=== PATIENT | female | born 1975 | race Caucasian/White ===

== ENCOUNTER 2017-06-05 08:46 | Outpatient (CLI) | payer OTHER | END 2017-06-05 08:47 | disposition critical access hospital (66) | LOC: EMS 08:46 | PROVIDERS: ATTEND Surgery | DX: R55 Syncope and collapse (principal) | CPT/HCPCS: A0425; A0427 ==

== ENCOUNTER 2017-06-05 09:01 | Emergency (ER) | payer OTHER ==
[2017-06-05] MEDS ORDERED: SODIUM CHLORIDE 0.9% 1,000 ML IV ONE ×2 (09:09→11:10)
--- NOTE | 2017-06-05 09:14 | ED Physician Documentation ---
History of Present Illness - Stated complaint Stated Complaint: DIZZY - Additonal information Additional information: hx from pt and EMS41 female denies preg sick for approx 5 days weak faitgue sore throat hoarse voice cough no NVD was seen in [place] ED, rapid strep neg, dx probable flu, out of window for tamiflu, dc has continued to be ill this AM while having a BM but not straining she felt faint, called her who came and lifted her to lay falt without injury she then had syncope - describes waxing and waning consciousness lasting a few sec each but over about 5 min was breathing, did not change colors no seizure activity EMS arrived and found pt to be tachy and orthostatic pt denies LONG, denies CP, denies palp, denies abd pain, denies NVD states not preg states has been drinking fluids Review of Systems Constitutional: reports: Fatigue. denies: Fever, Chills Throat: reports: Sore throat (already had a neg strep swab per pt) Cardiac: denies: Chest pain / pressure, Palpitations Respiratory: reports: Cough. denies: Dyspnea GI: denies: Abdominal Pain, Nausea, Vomiting, Diarrhea : denies: Now EGA (denies) Neurologic: reports: Generalized weakness, Syncope. 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 HEENT: None Psych: None Musculoskeletal: None Derm: None - Past Surgical History Past Surgical History: No - Present Medications Home Medications: Ambulatory Orders Medication Instructions Recorded Confirmed Benzonatate [Tessalon] 100 mg PO TID PRN #20 capsule 06/05/17 guaiFENesin/DEXTROMETHORPHAN 10 ml PO Q6H PRN #120 ml 06/05/17 [Robitussin Dm] - Allergies Allergies/Adverse Reactions: Allergies Allergy/AdvReac Type Severity Reaction Status Date / Time No Known Drug Allergies Allergy Verified 04/19/14 00:07 - Social History Does the pt smoke?: No Smoking Status: Never smoker Does the pt drink ETOH?: Yes Does the pt have substance abuse?: No - Immunizations Immunizations are current?: Yes - POLST Patient has POLST: No PD ED PE NORMAL - Vitals Vital signs reviewed: Yes (appears healthy and well kept but looks tired and weak) - General General: Alert and oriented X 3 - HEENT HEENT: PERRL, Moist mucous membranes, Pharynx benign - Neck Neck: Supple, no meningeal sign - Cardiac Cardiac: RRR (little tachy no murmur) - Respiratory Respiratory: No respiratory distress, Clear bilaterally - Abdomen Abdomen: Soft, Non tender - Derm Derm: Normal color - Extremities Extremities: No deformity - Neuro Neuro: Alert and oriented X 3 Eye Opening: Spontaneous Motor: Obeys Commands Verbal: Oriented GCS Score: 15 Results - Vitals Vitals: Vital Signs - 24 hr 06/05/17 06/05/17 06/05/17 09:03 11:11 13:27 Temperature 36.2 C L 37.0 C 36.9 C Heart Rate 92 85 76 Respiratory 16 18 15 Rate Blood Pressure 120/82 H 116/73 116/76 O2 Saturation 100 100 100 06/05/17 14:39 Temperature 37.2 C Heart Rate 76 Respiratory 18 Rate Blood Pressure 112/79 O2 Saturation 99 Oxygen O2 Source Room air - EKG (time done) 0815 Rate: Rate (enter#) Rhythm: NSR [place]: Normal Intervals: Normal [place]. No: Prolonged QT, Wide QRS QRS: Normal Ischemia: Normal ST segments Other comments: Other comments (no delta wave) - Labs Labs: Laboratory Tests 06/05/17 06/05/17 06/05/17 09:20 09:37 09:37 WBC 3.5 L RBC 4.13 L Hgb 12.4 Hct 36.4 L MCV 88.2 MCH 30.1 MCHC 34.1 RDW 12.9 Plt Count 109 L MPV 9.6 Neut # 2.4 Lymph # 0.8 L [place] # 0.3 Eos # 0.0 Baso # 0.0 Absolute Nucleated RBC 0.00 Nucleated RBC % 0.0 Sodium Potassium Chloride Carbon Dioxide Anion Gap BUN Creatinine Estimated GFR (MDRD) Glucose Lactic Acid Calcium Serum HCG, Qual NEGATIVE Urine Color Urine Clarity Urine pH Ur Specific [place] Urine Protein Urine Glucose (UA) Urine Ketones Urine Occult Blood Urine Nitrite Urine Bilirubin Urine Urobilinogen Ur Leukocyte Esterase Urine RBC Urine WBC Ur Squamous Epith Cells Urine Bacteria Ur Microscopic Review Urine Culture Comments Influenza A (Rapid) Negative Influenza B (Rapid) POSITIVE H Influenza Types A,B Ag + H 06/05/17 06/05/17 06/05/17 09:37 09:37 09:58 WBC RBC Hgb Hct MCV MCH MCHC RDW Plt Count MPV Neut # Lymph # [place] # Eos # Baso # Absolute Nucleated RBC Nucleated RBC % Sodium 134 L Potassium 3.4 L Chloride 106 Carbon Dioxide 22 Anion Gap 6.0 BUN 8 Creatinine 1.0 Estimated GFR (MDRD) 62 L Glucose 123 H Lactic Acid 1.1 Calcium 7.3 L Serum HCG, Qual Urine Color YELLOW Urine Clarity HAZY Urine pH 6.0 Ur Specific [place] <=1.005 Urine Protein NEGATIVE Urine Glucose (UA) NEGATIVE Urine Ketones NEGATIVE Urine Occult Blood NEGATIVE Urine Nitrite NEGATIVE Urine Bilirubin NEGATIVE Urine Urobilinogen 0.2 (NORMAL) Ur Leukocyte Esterase TRACE H Urine RBC 0-5 Urine WBC 0-3 Ur Squamous Epith Cells MANY Squamous H Urine Bacteria Many H Ur Microscopic Review INDICATED Urine Culture Comments NOT INDICATED Influenza A (Rapid) Influenza B (Rapid) Influenza Types A,B Ag - Rads (name of study) CXR Radiology: See rad report (NACPD no pna no cardiomegaly) PD MEDICAL DECISION MAKING - ED course ED course: influenza B with dehydration and syncope associated with orthostatic VS given 2 L of fluid outside window for tamiflu otherwise helathy, not , labs OK except for mild asymptomatic hypocalcemia feel can dc with supportive family pt gradually felt better after fluids etc no further syncope, NSR on tele, able to ambulate Departure - Departure Disposition: 01 Home, Self Care Clinical Impression: Influenza B, Dehydration Syncope Qualifiers: Syncope type: unspecified Qualified Code(s): R55 - Syncope and collapse Condition: Good Instructions: ED Dehydration, ED Flu, ED Fainting Unkn Cause Follow-Up: Virgie Dangelo PA-C [Primary Care Provider] - Prescriptions: Benzonatate [Tessalon] 100 mg PO TID PRN #20 capsule PRN Reason: to ease cough guaiFENesin/DEXTROMETHORPHAN [Robitussin Dm] 10 ml PO Q6H PRN #120 ml PRN Reason: Cough Comments: You do not have pneumonia But you do have influenza Unfortunately you have been sick for more than 2 days already so the tamiflu medication will not help at this point I think you passed out because you were dehydrated after being ill for so many days and your blood pressure was low. Your labs are fine except for a slightly low calcium level which would not cause those symptoms. The chest ray does not show an enlarged heart or a lung infection. The EKG and heart monitor showed you are in a regular rhythm without signs of heart inflammation So I actually think it is safe for you to go home after getting IV fluids in the ER You need to rest and take it easy and drink plenty of fluids I prescribed medications to ease your symptoms while you recover It may take up to 2 weeks before you are feeling better One of the dangerous complications of the flu is a secondary infection such as pneumonia - if you suddenly get worse, please come back to the ER to be rechecked Forms: Activity restrictions Discharge Date/Time: 06/05/17 15:01
[2017-06-05 09:51] LABS: BASOPHILS % (AUTO) 0.4 %; EOSINOPHILS % (AUTO) 0.4 %; HGB - HEMOGLOBIN 12.4 g/dL (12.0-16.0); LYMPHOCYTES # (AUTO) 0.8 10^3/uL (1.5-3.5); LYMPHOCYTES % (AUTO) 21.7 %; MEAN CORPUSCULAR HEMOGLOBIN 30.1 pg (27.0-31.0); MEAN CORPUSCULAR HGB CONC 34.1 g/dL (32.0-36.0); MEAN CORPUSCULAR VOLUME 88.2 fL (81.0-99.0); MEAN PLATELET VOLUME 9.6 fL (7.9-10.8); MONOCYTES # (AUTO) 0.3 10^3/uL (0.0-1.0); MONOCYTES % (AUTO) 9.7 %; NEUTROPHILS # (AUTO) 2.4 10^3/uL (1.5-6.6); NEUTROPHILS % (AUTO) 67.8 %; PLT - PLATELET COUNT 109 10^3/uL (130-450); RED BLOOD COUNT 4.13 10^6/uL (4.20-5.40); RED CELL DISTRIBUTION WIDTH 12.9 % (12.0-15.0); WHITE BLOOD COUNT 3.5 x10^3/uL (4.8-10.8)
[2017-06-05 09:54] LABS: CALCIUM 7.3 mg/dL (8.5-10.3)
[2017-06-05 10:10] LABS: BILIRUBIN,URINE NEGATIVE (NEGATIVE); GLUCOSE, URINE (UA) NEGATIVE (NEGATIVE); KETONES,URINE (UA) NEGATIVE (NEGATIVE); LEUKOCYTE ESTERASE, URINE TRACE (NEGATIVE); NITRITE,URINE NEGATIVE (NEGATIVE); OCCULT BLOOD,URINE NEGATIVE (NEGATIVE); PROTEIN,URINE NEGATIVE (NEGATIVE); UROBILINOGEN,URINE 0.2 (NORMAL) E.U./dL (NORMAL)
--- NOTE | 2017-06-05 10:12 | XRAY Report ---
EXAM: CHEST RADIOGRAPHY EXAM DATE: 06/05/2017 10:00 AM. CLINICAL HISTORY: Cough weakness syncope. COMPARISON: None. TECHNIQUE: 2 views. FINDINGS: Lungs/Pleura: No focal opacities evident. No pleural effusion. No pneumothorax. Normal volumes. Mediastinum: Heart and mediastinal contours are unremarkable. Other: None. IMPRESSION: Normal 2-view chest radiography. [facility] Referring Provider Line: [phone] SITE ID: [id number]
[2017-06-05 10:17] LABS: CLARITY,URINE HAZY (CLEAR)
[2017-06-05 10:19] LABS: HCG,QUALITATIVE BLOOD NEGATIVE
[2017-06-05 10:41] LABS: BACTERIA,URINE Many /HPF (None Seen); RBC,URINE 0-5 /HPF (0-5); SQUAMOUS EPITHELIAL CELL,UR MANY Squamous (<= Few)
[2017-06-05 14:39] VITALS: BP 112/79
== END 2017-06-05 15:01 | disposition home or self-care (01) ==
LOC: EDUNIT# → EDBD → ED 09:01
DX: J10.1 Influenza due to other identified influenza virus with other respiratory manifestations (principal); E86.0 Dehydration
CPT/HCPCS: 36415; 71046; 80048; 81001; 81003; 83605; 84703; 85025; 87040; 87086; 87275; 87276; 93005; 96360; 96361; 99284

== ENCOUNTER 2017-06-07 17:44 | Emergency (ER) | payer OTHER ==
--- NOTE | 2017-06-07 19:56 | XRAY Preliminary Report ---
Exam: XR CHEST 2 VIEW X-RAY IMPRESSION: Normal 2-view chest radiography. [facility] SITE ID: [id number]
--- NOTE | 2017-06-07 19:56 | XRAY Report ---
EXAM: CHEST RADIOGRAPHY EXAM DATE: 06/07/2017 07:43 PM. CLINICAL HISTORY: Chest congestion. COMPARISON: 06/05/2017 chest x-ray. TECHNIQUE: 2 views. FINDINGS: Lungs/Pleura: No focal opacities evident. No pleural effusion. No pneumothorax. Normal volumes. Mediastinum: Heart and mediastinal contours are unremarkable. Other: None. IMPRESSION: Normal 2-view chest radiography. [facility] Referring Provider Line: [phone] SITE ID: [id number]
--- NOTE | 2017-06-07 20:45 | ED Physician Documentation ---
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 : None HEENT: None Psych: None Musculoskeletal: None Derm: None - Past Surgical History Past Surgical History: No - Present Medications Home Medications: Ambulatory Orders Medication Instructions Recorded Confirmed Benzonatate [Tessalon] 100 mg PO TID PRN #20 capsule 06/05/17 guaiFENesin/DEXTROMETHORPHAN 10 ml PO Q6H PRN #120 ml 06/05/17 [Robitussin Dm] - Allergies Allergies/Adverse Reactions: Allergies Allergy/AdvReac Type Severity Reaction Status Date / Time No Known Drug Allergies Allergy Verified 04/19/14 00:07 - Social History Does the pt smoke?: No Smoking Status: Never smoker Does the pt drink ETOH?: Yes Does the pt have substance abuse?: No - Immunizations Immunizations are current?: Yes - POLST Patient has POLST: No Results - Vitals Vitals: Vital Signs - 24 hr 06/07/17 18:13 Temperature 37.4 C Heart Rate 91 Respiratory 18 Rate Blood Pressure 124/77 O2 Saturation 98 Oxygen O2 Source Room air
[2017-06-07 20:46] VITALS: BP 112/76
--- NOTE | 2017-06-07 20:47 | ED Physician Documentation ---
PD HPI URI - Stated complaint Stated Complaint: SOA/FLU SYMPTOMS - Chief complaint Chief Complaint: Resp - History obtained from History obtained from: Patient - History of Present Illness Timing - onset: How many days ago (5-6) Timing details: Gradual onset Associated symptoms: Chills, Sweats, Dry cough. No: Fever Worsened by: Other (coughing) Similar symptoms before: Diagnosis Recently seen: Emergency Dept - Additional information Additional information: T+R from ED (testing included negative rapid strep) and then [facility] ED (tests included positive for influenza B) for same symptoms, returns c/o ongoing cough , body aches. she has had episodic lightheadedness with standing, although this has improved (less frequent) after IV fluids given previous visit (06/05). her chief complaint tonight is chest congestion Review of Systems Constitutional: reports: Chills, Sweats. denies: Fever Throat: denies: Sore throat Cardiac: reports: Reviewed and negative Respiratory: reports: Cough. 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 HEENT: None Psych: None Musculoskeletal: None Derm: None - Past Surgical History Past Surgical History: No - Present Medications Home Medications: Ambulatory Orders Medication Instructions Recorded Confirmed Benzonatate [Tessalon] 100 mg PO TID PRN #20 capsule 06/05/17 guaiFENesin/DEXTROMETHORPHAN 10 ml PO Q6H PRN #120 ml 06/05/17 [Robitussin Dm] - Allergies Allergies/Adverse Reactions: Allergies Allergy/AdvReac Type Severity Reaction Status Date / Time No Known Drug Allergies Allergy Verified 04/19/14 00:07 - Social History Does the pt smoke?: No Smoking Status: Never smoker Does the pt drink ETOH?: Yes Does the pt have substance abuse?: No - Immunizations Immunizations are current?: Yes - POLST Patient has POLST: No PD ED PE NORMAL - Vitals Vital signs reviewed: Yes - General General: Alert and oriented X 3, No acute distress, Well developed/nourished - HEENT HEENT: Moist mucous membranes - Neck Neck: Supple, no meningeal sign - Cardiac Cardiac: RRR, No murmur, No gallop, No rub - Respiratory Respiratory: No respiratory distress, Clear bilaterally - Abdomen Abdomen: Soft, Non tender Results - Vitals Vitals: Oxygen O2 Source Room air - Rads (name of study) chest xray Radiology: Prelim report reviewed, See rad report PD MEDICAL DECISION MAKING - ED course Complexity details: reviewed results, re-evaluated patient, considered differential, d/w patient Departure - Departure Disposition: 01 Home, Self Care Clinical Impression: Influenza B Condition: Good Instructions: ED Flu Discharge Date/Time: 06/07/17 21:06
--- NOTE | 2017-06-07 21:59 | ED Physician Documentation ---
ED Addendum - Addendum Addendum: 06/07/17 21:59 unscheduled return visit - chart accessed for follow up and educational purposes
== END 2017-06-07 21:06 | disposition home or self-care (01) ==
LOC: ED 17:44
DX: J10.1 Influenza due to other identified influenza virus with other respiratory manifestations (principal)
CPT/HCPCS: 71046; 99282; 99283

== ENCOUNTER 2017-06-18 09:46 | Emergency (ER) | payer OTHER ==
--- NOTE | 2017-06-18 09:57 | ED Physician Documentation ---
History of Present Illness - Stated complaint Stated Complaint: DIARRHEA - Chief complaint Chief Complaint: Abd Pain - History obtained from History obtained from: Patient - History of Present Illness Timing: How many weeks ago (several) Pain level max: 0 Pain level now: 0 Improved by: nothing Worsened by: nothing - Additonal information Additional information: States tested positive for Flu B 2 weeks ago. Was given a z pack recently and finished yesterday. States no blood in stool. States feeling weak. Mild nausea. no abd pain. Numerous times per day diarrhea. No fevers. Did not take tamiflu. Review of Systems Ten Systems: 10 systems reviewed and negative Constitutional: denies: Fever, Chills Ears: denies: Ear pain Nose: denies: Rhinorrhea / runny nose, Congestion Throat: denies: Sore throat Cardiac: denies: Chest pain / pressure Respiratory: denies: Dyspnea, Cough GI: reports: Diarrhea. 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 : None HEENT: None Psych: None Musculoskeletal: None Derm: None - Past Surgical History Past Surgical History: No - Present Medications Home Medications: Ambulatory Orders Medication Instructions Recorded Confirmed No Known Home Medications [No 06/18/17 06/18/17 Known Home Medications] - Allergies Allergies/Adverse Reactions: Allergies Allergy/AdvReac Type Severity Reaction Status Date / Time No Known Drug Allergies Allergy Verified 06/18/17 09:51 - Social History Does the pt smoke?: No Smoking Status: Never smoker Does the pt drink ETOH?: Yes Does the pt have substance abuse?: No - Immunizations Immunizations are current?: Yes - POLST Patient has POLST: No PD ED PE NORMAL - Vitals Vital signs reviewed: Yes - General General: Alert and oriented X 3, No acute distress - HEENT HEENT: PERRL, Other (dry lips) - Neck Neck: Supple, no meningeal sign - Cardiac Cardiac: RRR - Respiratory Respiratory: No respiratory distress, Clear bilaterally - Abdomen Abdomen: Soft, Non tender, Non distended - Back Back: No CVA TTP, No spinal TTP - Derm Derm: Warm and dry, No rash - Neuro Neuro: Alert and oriented X 3 Results - Vitals Vitals: Vital Signs - 24 hr 06/18/17 06/18/17 09:48 12:00 Temperature 36.5 C 36.5 C Heart Rate 98 89 Respiratory 22 14 Rate Blood Pressure 138/77 H 118/76 O2 Saturation 100 100 Oxygen O2 Source Room air - Labs Labs: Microbiology 06/18/17 11:20 Clostridium difficile (PCR) - Final Stool 06/18/17 11:20 Campylobacter Antigen Assay - Final Stool Laboratory Tests 06/18/17 06/18/17 06/18/17 10:10 10:10 10:30 WBC 7.5 RBC 4.60 Hgb 13.7 Hct 39.7 MCV 86.3 MCH 29.9 MCHC 34.6 RDW 13.0 Plt Count 321 MPV 8.6 Neut # 5.0 Lymph # 1.8 [place] # 0.6 Eos # 0.1 Baso # 0.1 Absolute Nucleated RBC 0.00 Nucleated RBC % 0.0 Sodium 136 Potassium 3.4 L Chloride 102 Carbon Dioxide 25 Anion Gap 9.0 BUN 10 Creatinine 0.8 Estimated GFR (MDRD) 80 L Glucose 122 H Lactic Acid 1.2 Calcium 9.3 Phosphorus 2.4 L Magnesium 1.9 Total Bilirubin 0.8 AST 17 ALT 15 Alkaline Phosphatase 53 Total Protein 7.8 Albumin 4.5 Globulin 3.3 Albumin/Globulin Ratio 1.4 Lipase 40 Urine Color Urine Clarity Urine pH Ur Specific [place] Urine Protein Urine Glucose (UA) Urine Ketones Urine Occult Blood Urine Nitrite Urine Bilirubin Urine Urobilinogen Ur Leukocyte Esterase Ur Microscopic Review Urine Culture Comments 06/18/17 11:07 WBC RBC Hgb Hct MCV MCH MCHC RDW Plt Count MPV Neut # Lymph # [place] # Eos # Baso # Absolute Nucleated RBC Nucleated RBC % Sodium Potassium Chloride Carbon Dioxide Anion Gap BUN Creatinine Estimated GFR (MDRD) Glucose Lactic Acid Calcium Phosphorus Magnesium Total Bilirubin AST ALT Alkaline Phosphatase Total Protein Albumin Globulin Albumin/Globulin Ratio Lipase Urine Color LT. YELLOW Urine Clarity CLEAR Urine pH 5.5 Ur Specific [place] <=1.005 Urine Protein NEGATIVE Urine Glucose (UA) NEGATIVE Urine Ketones NEGATIVE Urine Occult Blood NEGATIVE Urine Nitrite NEGATIVE Urine Bilirubin NEGATIVE Urine Urobilinogen 0.2 (NORMAL) Ur Leukocyte Esterase NEGATIVE Ur Microscopic Review NOT INDICATED Urine Culture Comments NOT INDICATED PD MEDICAL DECISION MAKING - ED course Complexity details: reviewed old records, reviewed results, re-evaluated patient , considered differential (No Clostridium difficile diarrhea, no diverticulitis) , d/w patient, d/w family ED course: Patient is a 41-year-old female who presents to the emergency department with worsening diarrhea over the past few days, seems to be improving somewhat today. Had more of a formed stool in the emergency department when sent for testing, therefore C. difficile was canceled. Possible antibiotic associated diarrhea? Feels better after IV fluids and is tolerating p.o. well. We will continue supportive care and follow-up closely with her doctor. She will return if she worsens. Abdomen is soft, nontender nondistended on serial exam. Patient counseled regarding signs and symptoms for which I believe and urgent re-evaluation would be necessary. Patient with good understanding of and agreement to plan and is comfortable going home at this time This document was made in part using voice recognition software. While efforts are made to proofread this document, sound alike and grammatical errors may occur. Departure - Departure Disposition: 01 Home, Self Care Clinical Impression: Dehydration Diarrhea Qualifiers: Diarrhea type: unspecified type Qualified Code(s): R19.7 - Diarrhea, unspecified Condition: Good Instructions: ED Dehydration, ED Diarrhea Viral Follow-Up: your,doctor in 1 week [Other] Comments: Return if you worsen. Drink plenty of fluids and rest. This should improve over the next 24-48 hours, though the fatigue may still be present for the next week. Discharge Date/Time: 06/18/17 12:45
[2017-06-18] MEDS ORDERED: SODIUM CHLORIDE 0.9% 2,000 ML IV ONE (10:17)
[2017-06-18] MEDS ORDERED: SODIUM CHLORIDE 0.9% 1,000 ML IV ONE (10:17)
[2017-06-18 10:19] LABS: BASOPHILS # (AUTO) 0.1 10^3/uL (0.0-0.1); BASOPHILS % (AUTO) 0.8 %; EOSINOPHILS # (AUTO) 0.1 10^3/uL (0.0-0.7); EOSINOPHILS % (AUTO) 1.2 %; HGB - HEMOGLOBIN 13.7 g/dL (12.0-16.0); LYMPHOCYTES # (AUTO) 1.8 10^3/uL (1.5-3.5); LYMPHOCYTES % (AUTO) 23.9 %; MEAN CORPUSCULAR HEMOGLOBIN 29.9 pg (27.0-31.0); MEAN CORPUSCULAR HGB CONC 34.6 g/dL (32.0-36.0); MEAN CORPUSCULAR VOLUME 86.3 fL (81.0-99.0); MEAN PLATELET VOLUME 8.6 fL (7.9-10.8); MONOCYTES # (AUTO) 0.6 10^3/uL (0.0-1.0); MONOCYTES % (AUTO) 7.7 %; NEUTROPHILS % (AUTO) 66.4 %; PLT - PLATELET COUNT 321 10^3/uL (130-450); WHITE BLOOD COUNT 7.5 x10^3/uL (4.8-10.8)
[2017-06-18 10:37] LABS: ALBUMIN 4.5 g/dL (3.2-5.5); ALBUMIN/GLOBULIN RATIO 1.4 (1.0-2.2); BILIRUBIN,TOTAL 0.8 mg/dL (0.2-1.0); CALCIUM 9.3 mg/dL (8.5-10.3); CREATININE 0.8 mg/dL (0.4-1.0); MAGNESIUM 1.9 mg/dL (1.7-2.8); PHOSPHORUS 2.4 mg/dL (2.5-4.6); TOTAL PROTEIN 7.8 g/dL (6.7-8.2)
[2017-06-18 11:17] LABS: BILIRUBIN,URINE NEGATIVE (NEGATIVE); GLUCOSE, URINE (UA) NEGATIVE (NEGATIVE); KETONES,URINE (UA) NEGATIVE (NEGATIVE); LEUKOCYTE ESTERASE, URINE NEGATIVE (NEGATIVE); NITRITE,URINE NEGATIVE (NEGATIVE); OCCULT BLOOD,URINE NEGATIVE (NEGATIVE); PH,URINE 5.5 PH (5.0-7.5); PROTEIN,URINE NEGATIVE (NEGATIVE); UROBILINOGEN,URINE 0.2 (NORMAL) E.U./dL (NORMAL)
[2017-06-18 11:19] LABS: CLARITY,URINE CLEAR (CLEAR)
[2017-06-18 12:03] VITALS: BP 118/76
== END 2017-06-18 12:45 | disposition home or self-care (01) ==
LOC: ED 09:46
DX: E86.0 Dehydration (principal); R19.7 Diarrhea, unspecified
CPT/HCPCS: 36415; 80053; 81001; 81003; 83605; 83690; 83735; 84100; 85025; 87045; 87046; 87086; 87493; 96360; 96361; 99283; 99284

== ENCOUNTER 2017-06-26 14:52 | Emergency (ER) | payer OTHER ==
[2017-06-26 15:02] VITALS: BP 131/74
--- NOTE | 2017-06-26 15:30 | XRAY Report ---
EXAM: CHEST RADIOGRAPHY EXAM DATE: 06/26/2017 03:13 PM. CLINICAL HISTORY: Productive cough, recent flu. COMPARISON: None. TECHNIQUE: 2 views. FINDINGS: Lungs/Pleura: No focal opacities evident. No pleural effusion. No pneumothorax. Normal volumes. Mediastinum: Heart and mediastinal contours are unremarkable. Other: None. IMPRESSION: Negative chest [facility] Referring Provider Line: [phone] SITE ID: [id number]
--- NOTE | 2017-06-26 15:30 | XRAY Preliminary Report ---
Exam: XR CHEST 2 VIEW X-RAY IMPRESSION: Negative chest [facility] SITE ID: [id number]
[2017-06-26 16:55] LABS: BILIRUBIN,URINE NEGATIVE (NEGATIVE); GLUCOSE, URINE (UA) NEGATIVE (NEGATIVE); KETONES,URINE (UA) NEGATIVE (NEGATIVE); LEUKOCYTE ESTERASE, URINE NEGATIVE (NEGATIVE); NITRITE,URINE NEGATIVE (NEGATIVE); OCCULT BLOOD,URINE NEGATIVE (NEGATIVE); PROTEIN,URINE NEGATIVE (NEGATIVE); UROBILINOGEN,URINE 0.2 (NORMAL) E.U./dL (NORMAL)
[2017-06-26 16:56] LABS: CLARITY,URINE CLEAR (CLEAR)
[2017-06-26 16:58] LABS: HCG UR QUAL NEGATIVE
[2017-06-26 17:05] LABS: BASOPHILS # (AUTO) 0.1 10^3/uL (0.0-0.1); BASOPHILS % (AUTO) 0.9 %; EOSINOPHILS # (AUTO) 0.1 10^3/uL (0.0-0.7); EOSINOPHILS % (AUTO) 1.6 %; HGB - HEMOGLOBIN 13.7 g/dL (12.0-16.0); LYMPHOCYTES # (AUTO) 1.5 10^3/uL (1.5-3.5); LYMPHOCYTES % (AUTO) 22.6 %; MEAN CORPUSCULAR HEMOGLOBIN 29.8 pg (27.0-31.0); MEAN CORPUSCULAR HGB CONC 34.1 g/dL (32.0-36.0); MEAN CORPUSCULAR VOLUME 87.6 fL (81.0-99.0); MEAN PLATELET VOLUME 9.6 fL (7.9-10.8); MONOCYTES # (AUTO) 0.6 10^3/uL (0.0-1.0); MONOCYTES % (AUTO) 8.5 %; NEUTROPHILS # (AUTO) 4.5 10^3/uL (1.5-6.6); NEUTROPHILS % (AUTO) 66.4 %; PLT - PLATELET COUNT 245 10^3/uL (130-450); RED BLOOD COUNT 4.59 10^6/uL (4.20-5.40); RED CELL DISTRIBUTION WIDTH 13.2 % (12.0-15.0); WHITE BLOOD COUNT 6.8 x10^3/uL (4.8-10.8)
--- NOTE | 2017-06-26 17:13 | XRAY Preliminary Report ---
Exam: XR HIP W/PELVIS 2-3V RT IMPRESSION: Normal pelvis and hip radiography. [facility] SITE ID: [id number]
[2017-06-26 17:18] LABS: ALBUMIN 4.8 g/dL (3.2-5.5); ALBUMIN/GLOBULIN RATIO 1.4 (1.0-2.2); BILIRUBIN,TOTAL 0.5 mg/dL (0.2-1.0); CALCIUM 9.5 mg/dL (8.5-10.3); CREATININE 0.7 mg/dL (0.4-1.0); TOTAL PROTEIN 8.2 g/dL (6.7-8.2)
--- NOTE | 2017-06-26 17:23 | XRAY Report ---
EXAM: RIGHT HIP AND PELVIS RADIOGRAPHY EXAM DATE: 06/26/2017 04:56 PM. HISTORY: Iliac pain right. COMPARISONS: None. TECHNIQUE: 1 view of the pelvis and 1 view of the hip. FINDINGS: Bones: Normal. No fracture or bone lesion. Joints: The bilateral hip, pubis symphysis, and sacroiliac joints are preserved. Soft Tissues: Normal. No soft tissue swelling. IMPRESSION: Normal pelvis and hip radiography. [facility] Referring Provider Line: [phone] SITE ID: [id number]
--- NOTE | 2017-06-26 17:25 | ED Physician Documentation ---
History of Present Illness - Stated complaint Stated Complaint: FEVER - Chief complaint Chief Complaint: Resp - History obtained from History obtained from: Patient, Family - History of Present Illness Timing: How many weeks ago (3) - Additonal information Additional information: 41-year-old female who first p.m. ill about 3 weeks ago which had a syncopal episode on the commode and was found to have influenza B. She had had a scratchy throat for several days and had been into the emergency department at [facility] where a rapid strep was obtained. She was out of the window for Tamiflu. She had a return visit to the ED without further findings and a third visit with diarrhea after taking a z-[id number]. She is now complaining that she feels like she is going to pass out in the morning when she awakens. Review of Systems Constitutional: reports: Fever Eyes: denies: Decreased vision Ears: denies: Ear pain, Tinnitus/ringing Nose: denies: Rhinorrhea / runny nose, Congestion Throat: reports: Sore throat Cardiac: denies: Chest pain / pressure, Palpitations Respiratory: reports: Cough. denies: Dyspnea GI: denies: Abdominal Pain, Nausea, Vomiting : denies: Dysuria, Frequency Skin: denies: Rash Musculoskeletal: reports: Joint pain (right hip). 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 : None HEENT: None Psych: None Musculoskeletal: None Derm: None - Past Surgical History Past Surgical History: No - Present Medications Home Medications: Ambulatory Orders Medication Instructions Recorded Confirmed No Known Home Medications [No 06/18/17 06/18/17 Known Home Medications] - Allergies Allergies/Adverse Reactions: Allergies Allergy/AdvReac Type Severity Reaction Status Date / Time No Known Drug Allergies Allergy Verified 06/26/17 15:01 - Social History Does the pt smoke?: No Smoking Status: Never smoker Does the pt drink ETOH?: Yes Does the pt have substance abuse?: No - Immunizations Immunizations are current?: Yes - POLST Patient has POLST: No PD ED PE NORMAL - Vitals Vital signs reviewed: Yes (normal ) - General General: Alert and oriented X 3, No acute distress, Well developed/nourished - HEENT HEENT: Atraumatic, PERRL, EOMI, Ears normal, Moist mucous membranes, Pharynx benign, Dentition benign - Cardiac Cardiac: RRR, No murmur - Respiratory Respiratory: No respiratory distress, Clear bilaterally - Abdomen Abdomen: Normal bowel sounds, Non distended - Back Back: No CVA TTP, No spinal TTP - Derm Derm: Normal color, Warm and dry, No rash - Extremities Extremities: No deformity, No edema - Neuro Neuro: Alert and oriented X 3, pre parole counseling aide 2-12 intact, No motor deficit, No sensory deficit, Normal speech Eye Opening: Spontaneous Motor: Obeys Commands Verbal: Oriented GCS Score: 15 - Psych Psych: Normal mood, Normal affect Results - Vitals Vitals: Vital Signs - 24 hr 06/26/17 14:59 Temperature 36.9 C Heart Rate 96 Respiratory 16 Rate Blood Pressure 131/74 H O2 Saturation 99 Oxygen O2 Source Room air - Labs Labs: Laboratory Tests 06/26/17 06/26/17 06/26/17 16:42 16:52 17:00 WBC 6.8 RBC 4.59 Hgb 13.7 Hct 40.2 MCV 87.6 MCH 29.8 MCHC 34.1 RDW 13.2 Plt Count 245 MPV 9.6 Neut # 4.5 Lymph # 1.5 [place] # 0.6 Eos # 0.1 Baso # 0.1 Absolute Nucleated RBC 0.01 Nucleated RBC % 0.1 ESR Sodium Potassium Chloride Carbon Dioxide Anion Gap BUN Creatinine Estimated GFR (MDRD) Glucose Calcium Total Bilirubin AST ALT Alkaline Phosphatase Total Protein Albumin Globulin Albumin/Globulin Ratio Lipase Urine Color YELLOW Urine Clarity CLEAR Urine pH 6.0 Ur Specific [place] 1.025 Urine Protein NEGATIVE Urine Glucose (UA) NEGATIVE Urine Ketones NEGATIVE Urine Occult Blood NEGATIVE Urine Nitrite NEGATIVE Urine Bilirubin NEGATIVE Urine Urobilinogen 0.2 (NORMAL) Ur Leukocyte Esterase NEGATIVE Ur Microscopic Review NOT INDICATED Urine Culture Comments NOT INDICATED Urine HCG, Qual NEGATIVE Group A Strep Rapid Negative 06/26/17 06/26/17 17:00 17:00 WBC RBC Hgb Hct MCV MCH MCHC RDW Plt Count MPV Neut # Lymph # [place] # Eos # Baso # Absolute Nucleated RBC Nucleated RBC % ESR 7 Sodium 137 Potassium 3.3 L Chloride 103 Carbon Dioxide 26 Anion Gap 8.0 BUN 17 Creatinine 0.7 Estimated GFR (MDRD) 93 Glucose 97 Calcium 9.5 Total Bilirubin 0.5 AST 18 ALT 14 Alkaline Phosphatase 67 Total Protein 8.2 Albumin 4.8 Globulin 3.4 Albumin/Globulin Ratio 1.4 Lipase 33 Urine Color Urine Clarity Urine pH Ur Specific [place] Urine Protein Urine Glucose (UA) Urine Ketones Urine Occult Blood Urine Nitrite Urine Bilirubin Urine Urobilinogen Ur Leukocyte Esterase Ur Microscopic Review Urine Culture Comments Urine HCG, Qual Group A Strep Rapid - Rads (name of study) right hip Radiology: Prelim report reviewed (Impression: Normal pelvis and hip radiography.), EMP read indepedently, See rad report 2 view chest Radiology: Prelim report reviewed (Impression: Negative chest.), EMP read indepedently, See rad report Procedures - IVC sono (time) 1600 Bedside IVC sono: IVC measures (cm) (1.76), Euvolemia PD MEDICAL DECISION MAKING - ED course Complexity details: reviewed old records, reviewed results, re-evaluated patient , considered differential, d/w patient, d/w family ED course: 41-year-old female had a syncopal episode 3 weeks ago with the onset of the influenza. She appears to have cleared the influenza but continues to have a low-grade cough. When she awakens each morning feeling that she is going to pass out and today when she got a hug from her friend they thought she was warm. They checked her temperature and she had a fever of 99 9. She has come to the emergency department today frustrated that nothing specific has been found and she continues to feel that there is something wrong. Today we did an extensive workup to include a chest x-ray, blood work, urinalysis, sedimentation rate, rapid strep and x-ray of the right hip, (as she was having some pain in that area continuously). We interrogated the IVC with the bedside ultrasound and found her to be euvolemic as well. All studies were negative and within normal ranges. This was reassuring and after thoroughly examining the patient and finding no specific abnormalities I discussed with the patient and her her anxiety over this syncopal episode. She readily acknowledged this and feels this is likely a problem for her. She did request medication for anxiety and we have left this to her primary if it becomes necessary. Departure - Departure Disposition: 01 Home, Self Care Clinical Impression: Anxiety about health Condition: Stable Instructions: Anxiety Body Response Follow-Up: [facility] [Provider Group]
== END 2017-06-26 18:01 | disposition home or self-care (01) ==
LOC: ED 14:52
DX: F41.9 Anxiety disorder, unspecified (principal); R05 Cough
CPT/HCPCS: 36415; 71046; 80053; 81001; 81003; 81025; 83690; 85025; 85651; 87040; 87070; 87086; 87430; 99283

== ENCOUNTER 2017-07-22 07:54 | Emergency (ER) | payer OTHER ==
--- NOTE | 2017-07-22 08:10 | ED Physician Documentation ---
PD HPI NVD - Stated complaint Stated Complaint: WEAKNESS - Chief complaint Chief Complaint: Abd Pain - History obtained from History obtained from: Patient - History of Present Illness Timing - onset: Today Timing - duration: Days (onset of marked diarrhea today.), Weeks (had flu B and cough a month ago and had Zpack by PMD. Got marked diarrhea from that and seen in ED with IV fluids and meds. Diarrhea tapered but has had continued soft stools and then diarrhea markedly again today. No noted blood in stool. Has had poor appetite and upper abd discomfort with eating the past few weeks.) Timing - details: Gradual onset, Waxing and waning Associated symptoms: Abdominal pain (upper), Near syncope / syncope (several distinct times the past few weeks.), Loss of appetite. No: Fever, Chest pain, Hematemesis, Melena, Weight loss Contributing factors: No: Sick contact, Bad food, Travel Improved by: No: BM Worsened by: Eating Similar symptoms before: Has not had sx before Recently seen: Emergency Dept Review of Systems Constitutional: denies: Fever, Chills, Myalgias Nose: denies: Rhinorrhea / runny nose, Congestion Throat: denies: Sore throat Respiratory: denies: Cough GI: reports: Abdominal Pain, Nausea, Diarrhea. denies: Constipation, Hematemesis, Bloody / black stool : denies: Dysuria, Frequency Neurologic: reports: Generalized weakness. denies: Focal weakness, Numbness, Near syncope Psychiatric: reports: Anxiety. 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 : None HEENT: None Psych: None Musculoskeletal: None Derm: None - Past Surgical History Past Surgical History: No - Present Medications Home Medications: Ambulatory Orders Medication Instructions Recorded Confirmed LORazepam [Ativan] 0.5 mg PO BID PRN #12 tablet 07/22/17 Ondansetron HCl [Zofran] 4 mg PO Q6H PRN #20 tablet 07/22/17 Potassium Bicarbonate 25 meq PO DAILY #5 tablet 07/22/17 [K-Effervescent] Ranitidine HCl [Acid Control] 150 mg PO DAILY #30 tablet 07/22/17 Saccharomyces Boulardii [Florastor] 250 mg PO BID #28 capsule 07/22/17 - Allergies Allergies/Adverse Reactions: Allergies Allergy/AdvReac Type Severity Reaction Status Date / Time No Known Drug Allergies Allergy Verified 07/22/17 08:02 - Social History Does the pt smoke?: No Smoking Status: Never smoker Does the pt drink ETOH?: Yes Does the pt have substance abuse?: No - Family History Family history: reports: Non contributory - Immunizations Immunizations are current?: Yes - POLST Patient has POLST: No PD ED PE NORMAL - Vitals Vital signs reviewed: Yes - General General: Alert and oriented X 3, Well developed/nourished, Other (seems uncomfortable and also very anxious/tearful about being ill. ) - HEENT HEENT: PERRL (nonicteric), Ears normal, Moist mucous membranes, Pharynx benign - Neck Neck: Supple, no meningeal sign, No adenopathy - Cardiac Cardiac: RRR (mild tachycardic, but regular. ), No murmur - Respiratory Respiratory: Clear bilaterally - Abdomen Abdomen: Normal bowel sounds, Soft, Non distended, No organomegaly, Other ( tender upper abd, central to RUQ; no rebound nor percussion tenderness. ) - Female Female : Deferred - Rectal Rectal: Deferred - Back Back: No CVA TTP - Derm Derm: Normal color, Warm and dry - Extremities Extremities: Normal ROM s pain, No edema, No calf tenderness / cord - Neuro Neuro: Alert and oriented X 3, No motor deficit, Normal speech - Psych Psych: Normal mood. No: Normal affect (anxious) Results - Vitals Vitals: Vital Signs - 24 hr 07/22/17 07/22/17 07/22/17 07:58 10:20 11:40 Temperature 36.7 C Heart Rate 104 H 100 92 Respiratory 22 18 18 Rate Blood Pressure 139/79 H 123/81 H 126/76 O2 Saturation 100 100 100 07/22/17 12:45 Temperature Heart Rate 76 Respiratory 14 Rate Blood Pressure 110/62 O2 Saturation 98 Oxygen O2 Source Room air - Labs Labs: Microbiology 07/22/17 08:54 Clostridium difficile (PCR) - Final Stool 07/22/17 08:54 Campylobacter Antigen Assay - Final Stool Laboratory Tests 04/27/18 04/27/18 04/27/18 09:56 09:56 09:56 WBC 9.9 RBC 4.46 Hgb 13.6 Hct 39.7 MCV 89.0 MCH 30.4 MCHC 34.2 RDW 13.9 Plt Count 182 MPV 9.7 Neut # 8.5 H Lymph # 0.[address] [place] # 0.5 Eos # 0.0 Baso # 0.0 Absolute Nucleated RBC 0.00 Nucleated RBC % 0.0 ESR 6 Sodium 133 L Potassium 3.3 L Chloride 103 Carbon Dioxide 22 Anion Gap 8.0 BUN 14 Creatinine 0.9 Estimated GFR (MDRD) 69 L Glucose 109 H Calcium 9.4 Magnesium 1.8 Total Bilirubin 0.8 AST 18 ALT 14 Alkaline Phosphatase 49 Total Protein 7.8 Albumin 4.7 Globulin 3.1 Albumin/Globulin Ratio 1.5 Lipase 33 PD MEDICAL DECISION MAKING - ED course Complexity details: re-evaluated patient (improved symptoms but still some upper abd pain. Not an acute abdomen on exam. ), considered differential ( Consider infectious colitis, particularly c.diff., and also inflammatory, such as new onset Crohns. Has upper abd pain, so likely gastritis, which fits with her symtpoms, but also consider gallbladder process. Has had diarrhea post abx, so to add probiotic. Has gastritis symptoms, so to add H2 denis. Zofran for nausea. ), d/w patient Departure - Departure Disposition: 01 Home, Self Care Clinical Impression: Anxiety Diarrhea Qualifiers: Diarrhea type: presumed infectious Qualified Code(s): R19.7 - Diarrhea, unspecified Gastritis Qualifiers: Gastritis type: unspecified gastritis Chronicity: acute Gastritis bleeding: without bleeding Qualified Code(s): K29.00 - Acute gastritis without bleeding Condition: Stable Record reviewed to determine appropriate education?: Yes Instructions: ED Stress React, ED Gastritis Follow-Up: [facility] [Provider Group] Prescriptions: LORazepam [Ativan] 0.5 mg PO BID PRN #12 tablet PRN Reason: Insomnia Ondansetron HCl [Zofran] 4 mg PO Q6H PRN #20 tablet PRN Reason: Nausea / Vomiting Potassium Bicarbonate [K-Effervescent] 25 meq PO DAILY #5 tablet Ranitidine HCl [Acid Control] 150 mg PO DAILY #30 tablet Saccharomyces Boulardii [Florastor] 250 mg PO BID #28 capsule Comments: Drink lots of fluids. Regular diet. Add Florastor probiotic twice daily for a couple of weeks. Use ondansetron if needed for nausea. It does sound likely there is some irritation of the stomach (gastritis) and so take ranitidine daily for a month. Your potassium was a little bit low from the diarrhea so add a potassium supplement for 5 days. He can use Lorazepam if needed for anxiety and sleep once or twice daily for the next several days. Follow-up with your primary care next week, call for an appointment. Discharge Date/Time: 07/22/17 12:46
[2017-07-22] MEDS ORDERED: ONDANSETRON 4 MG/2 ML VIAL IVP STA ×2 (08:33→10:51)
[2017-07-22] MEDS ORDERED: SODIUM CHLORIDE 0.9% 1,000 ML IV ONE ×2 (08:33→08:34)
[2017-07-22] MEDS ORDERED: FAMOTIDINE 20 MG/50 ML 50 ML IV ONE (08:35)
[2017-07-22] MEDS ORDERED: MAG HYDROX/AL HYDROX/SIMETH 30 ML UDC PO STA (09:20)
[2017-07-22] MEDS ORDERED: LIDOCAINE VISCOUS 2% 15 ML UDC MM STA (09:20)
[2017-07-22 10:00] LABS: BASOPHILS % (AUTO) 0.3 %; EOSINOPHILS % (AUTO) 0.4 %; HGB - HEMOGLOBIN 13.6 g/dL (12.0-16.0); LYMPHOCYTES # (AUTO) 0.9 10^3/uL (1.5-3.5); LYMPHOCYTES % (AUTO) 8.6 %; MEAN CORPUSCULAR HEMOGLOBIN 30.4 pg (27.0-31.0); MEAN CORPUSCULAR HGB CONC 34.2 g/dL (32.0-36.0); MEAN PLATELET VOLUME 9.7 fL (7.9-10.8); MONOCYTES # (AUTO) 0.5 10^3/uL (0.0-1.0); MONOCYTES % (AUTO) 4.8 %; NEUTROPHILS # (AUTO) 8.5 10^3/uL (1.5-6.6); NEUTROPHILS % (AUTO) 85.9 %; PLT - PLATELET COUNT 182 10^3/uL (130-450); RED BLOOD COUNT 4.46 10^6/uL (4.20-5.40); RED CELL DISTRIBUTION WIDTH 13.9 % (12.0-15.0); WHITE BLOOD COUNT 9.9 x10^3/uL (4.8-10.8)
[2017-07-22 10:13] LABS: ALBUMIN 4.7 g/dL (3.2-5.5); ALBUMIN/GLOBULIN RATIO 1.5 (1.0-2.2); BILIRUBIN,TOTAL 0.8 mg/dL (0.2-1.0); CALCIUM 9.4 mg/dL (8.5-10.3); CREATININE 0.9 mg/dL (0.4-1.0); MAGNESIUM 1.8 mg/dL (1.7-2.8); TOTAL PROTEIN 7.8 g/dL (6.7-8.2)
--- NOTE | 2017-07-22 11:50 | Ultrasound Report ---
RIGHT UPPER QUADRANT ULTRASOUND: 07/22/2017 CLINICAL INDICATION: Pain, nausea. TECHNIQUE: Real-time scanning was performed with veterans employment representative static images obtained. FINDINGS: The liver measures 16.1 cm. Hepatic echogenicity is normal. No intrahepatic biliary dilatation or focal parenchymal lesion is present. The common bile duct measures 3 mm. The gallbladder is normal. The right kidney measures 10.6 cm, and demonstrates no hydronephrosis. No free fluid is present. IMPRESSION: NORMAL RIGHT UPPER QUADRANT ULTRASOUND. TD: 07/22/2017 11:48
[2017-07-22] MEDS ORDERED: LORazepam 2 MG/ML VIAL IVP STA (12:00)
[2017-07-22] MEDS ORDERED: POTASSIUM BICARB 25 MEQ TABLET PO STA (12:01)
[2017-07-22 12:46] VITALS: BP 110/62
== END 2017-07-22 12:46 | disposition home or self-care (01) ==
LOC: ED 07:54
DX: K29.00 Acute gastritis without bleeding (principal); F41.9 Anxiety disorder, unspecified
CPT/HCPCS: 36415; 76705; 80053; 83690; 83735; 85025; 85651; 87045; 87046; 87493; 96361; 96365; 96375; 96376; 99283; 99284; A9270; J2060; 87177; 87209; 87252; 87798

== ENCOUNTER 2017-07-24 10:16 | Emergency (ER) | payer OTHER ==
--- NOTE | 2017-07-24 10:59 | ED Physician Documentation ---
PD HPI NVD - Stated complaint Stated Complaint: DIZZY/NAUSEA/AB PX/DIARRHEA - Chief complaint Chief Complaint: Abd Pain - History obtained from History obtained from: Patient - History of Present Illness Timing - duration: Weeks (she has not been feeling well for weeks. See recent notes and visits with ongoing episodes of lightheadedness, feeling of anxiety about not feeling well, diarrhea, and recently now lower abd pains.) Timing - details: Gradual onset, Still present, Waxing and waning Associated symptoms: Abdominal pain (recent epigastric pain is improving but has had left lower pains for several days or more now.), Near syncope / syncope (mulitple times, abruptly and will feel anxious, heart racing and feels lightheaded. No syncope per se.), Loss of appetite Contributing factors: No: Sick contact, Bad food Improved by: No: BM Worsened by: Eating Recently seen: Emergency Dept (several visits - see prior notes.) Review of Systems Constitutional: denies: Fever, Chills, Myalgias Ears: denies: Ear pain, Tinnitus/ringing Nose: denies: Rhinorrhea / runny nose, Congestion Throat: denies: Sore throat Cardiac: reports: Palpitations (feeling of heart racing at times). denies: Chest pain / pressure GI: reports: Abdominal Pain, Nausea, Diarrhea. denies: Abdominal Swelling, Vomiting, Bloody / black stool : denies: Dysuria, Frequency Skin: denies: Rash, Lesions Neurologic: reports: Generalized weakness, Near syncope. 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 : None HEENT: None Psych: None Musculoskeletal: None Derm: None - Past Surgical History Past Surgical History: No - Present Medications Home Medications: Ambulatory Orders Medication Instructions Recorded Confirmed LORazepam [Ativan] 0.5 mg PO BID PRN #12 tablet 07/22/17 Ondansetron HCl [Zofran] 4 mg PO Q6H PRN #20 tablet 07/22/17 Potassium Bicarbonate 25 meq PO DAILY #5 tablet 07/22/17 [K-Effervescent] Ranitidine HCl [Acid Control] 150 mg PO DAILY #30 tablet 07/22/17 Saccharomyces Boulardii [Florastor] 250 mg PO BID #28 capsule 07/22/17 Diphenoxylate HCl/Atropine 1 each PO Q6H PRN #20 tablet 07/24/17 [Diphenoxylate-Atrop 2.5-0.025] - Allergies Allergies/Adverse Reactions: Allergies Allergy/AdvReac Type Severity Reaction Status Date / Time No Known Drug Allergies Allergy Verified 07/24/17 10:23 - Social History Does the pt smoke?: No Smoking Status: Never smoker Does the pt drink ETOH?: Yes Does the pt have substance abuse?: No - Immunizations Immunizations are current?: Yes - POLST Patient has POLST: No PD ED PE NORMAL - Vitals Vital signs reviewed: Yes - General General: Alert and oriented X 3, Well developed/nourished, Other (having some pain but is very anxious, tearful and upset about feeling ill. ) - HEENT HEENT: Moist mucous membranes, Pharynx benign - Neck Neck: Supple, no meningeal sign, No adenopathy - Cardiac Cardiac: RRR, No murmur - Respiratory Respiratory: Clear bilaterally - Abdomen Abdomen: Normal bowel sounds, Soft, Non distended, No organomegaly, Other (some tender left lower abd without percussion nor rebound tenderness. ) Results - Vitals Vitals: Vital Signs - 24 hr 07/24/17 07/24/17 07/24/17 10:20 12:20 15:36 Temperature 36.8 C Heart Rate 102 H 79 72 Respiratory 16 17 16 Rate Blood Pressure 118/99 H 131/74 H 113/80 O2 Saturation 99 100 100 Oxygen O2 Source Room air - Labs Labs: Laboratory Tests 07/24/17 07/24/17 07/24/17 11:39 11:39 11:39 WBC 8.3 RBC 4.68 Hgb 14.1 Hct 41.7 MCV 89.0 MCH 30.2 MCHC 33.9 RDW 13.9 Plt Count 191 MPV 9.3 Neut # 6.4 Lymph # 1.3 L [place] # 0.4 Eos # 0.1 Baso # 0.0 Absolute Nucleated RBC 0.00 Nucleated RBC % 0.0 Sodium 137 Potassium 3.5 Chloride 103 Carbon Dioxide 25 Anion Gap 9.0 BUN 11 Creatinine 0.9 Estimated GFR (MDRD) 69 L Glucose 95 Calcium 9.7 Magnesium 2.0 Total Bilirubin 0.6 AST 17 ALT 13 Alkaline Phosphatase 44 Total Protein 8.2 Albumin 5.0 Globulin 3.2 Albumin/Globulin Ratio 1.6 Lipase 34 Urine Color YELLOW Urine Clarity CLEAR Urine pH 6.5 Ur Specific [place] <=1.005 Urine Protein NEGATIVE Urine Glucose (UA) NEGATIVE Urine Ketones NEGATIVE Urine Occult Blood NEGATIVE Urine Nitrite NEGATIVE Urine Bilirubin NEGATIVE Urine Urobilinogen 0.2 (NORMAL) Ur Leukocyte Esterase NEGATIVE Ur Microscopic Review NOT INDICATED Urine Culture Comments NOT INDICATED - Rads (name of study) abd CT Radiology: Prelim report reviewed (no acute GI process; 3 cm left ovarian cyst.) pelvic U/S Radiology: Prelim report reviewed (simple ovarian cyst. has blood flow. ) PD MEDICAL DECISION MAKING - ED course Complexity details: re-evaluated patient (feeling better with some meds, particularly the ativan, which may be reasonable for short term given the degree of anxiety related to the illness. She is still having episodes of lightheadedness, that are not explained. I suggested still for her to see PMD to have Holter to eval for SVT/etc as she feels her heart race when she gets the events. ), considered differential (her current LLQ pain can be from the ovarian cyst. No other obvious cause. Consider colitis pain since still having the diarrhea. Her stool cultures recently negative. ), d/w patient Departure - Departure Disposition: 01 Home, Self Care Clinical Impression: Left ovarian cyst Abdominal pain Qualifiers: Abdominal location: unspecified location Qualified Code(s): R10.9 - Unspecified abdominal pain Diarrhea Qualifiers: Diarrhea type: presumed infectious Qualified Code(s): R19.7 - Diarrhea, unspecified Gastritis Qualifiers: Gastritis type: unspecified gastritis Chronicity: acute Gastritis bleeding: without bleeding Qualified Code(s): K29.00 - Acute gastritis without bleeding Condition: Stable Record reviewed to determine appropriate education?: Yes Follow-Up: Weston Tabares MD [Provider Admit Priv/Credential] - Prescriptions: Diphenoxylate HCl/Atropine [Diphenoxylate-Atrop 2.5-0.025] 1 each PO Q6H PRN # 20 tablet PRN Reason: Diarrhea Comments: Continue the ranitidine acid ad operations intern for the stomach and the probiotics as previously directed. Continue the ondansetron for nausea as needed. Add Lomotil if needed for diarrhea every 4-6 hours. Tylenol or ibuprofen if needed for pains. Recheck if not improving well over the next few days. The cyst found on scan appears to be a normal type cyst without any obvious complications. No other acute abnormalities were seen on the CT scan or ultrasound. You can follow-up with gastroenterology and I gave the number for 1 of the residential insurance inspector that comes to [facility] here in [place]. It can be Rober or any of his group that come up this way. Call for an appointment. Use the previously prescribed Ativan if needed for anxiety and will be okay in the short-term use of it. Forms: Activity restrictions Discharge Date/Time: 07/24/17 16:51
[2017-07-24] MEDS ORDERED: MORPHINE 10 MG/ML VIAL IVP STA (11:24)
[2017-07-24] MEDS ORDERED: LOPERAMIDE 2 MG CAPSULE PO STA (11:24)
[2017-07-24] MEDS ORDERED: ONDANSETRON 4 MG/2 ML VIAL IVP STA (11:24)
[2017-07-24] MEDS ORDERED: LORazepam 2 MG/ML VIAL IVP STA (11:25)
[2017-07-24] MEDS ORDERED: SODIUM CHLORIDE 0.9% 1,000 ML IV ONE (11:28)
[2017-07-24] MEDS ORDERED: IOPAMIDOL-300 100 ML VIAL ONE (11:44)
[2017-07-24 11:47] LABS: BASOPHILS % (AUTO) 0.6 %; EOSINOPHILS # (AUTO) 0.1 10^3/uL (0.0-0.7); EOSINOPHILS % (AUTO) 0.8 %; HGB - HEMOGLOBIN 14.1 g/dL (12.0-16.0); LYMPHOCYTES # (AUTO) 1.3 10^3/uL (1.5-3.5); MEAN CORPUSCULAR HEMOGLOBIN 30.2 pg (27.0-31.0); MEAN CORPUSCULAR HGB CONC 33.9 g/dL (32.0-36.0); MEAN PLATELET VOLUME 9.3 fL (7.9-10.8); MONOCYTES # (AUTO) 0.4 10^3/uL (0.0-1.0); MONOCYTES % (AUTO) 5.1 %; NEUTROPHILS # (AUTO) 6.4 10^3/uL (1.5-6.6); NEUTROPHILS % (AUTO) 77.5 %; PLT - PLATELET COUNT 191 10^3/uL (130-450); RED BLOOD COUNT 4.68 10^6/uL (4.20-5.40); RED CELL DISTRIBUTION WIDTH 13.9 % (12.0-15.0); WHITE BLOOD COUNT 8.3 x10^3/uL (4.8-10.8)
[2017-07-24 11:56] LABS: BILIRUBIN,URINE NEGATIVE (NEGATIVE); GLUCOSE, URINE (UA) NEGATIVE (NEGATIVE); KETONES,URINE (UA) NEGATIVE (NEGATIVE); LEUKOCYTE ESTERASE, URINE NEGATIVE (NEGATIVE); NITRITE,URINE NEGATIVE (NEGATIVE); OCCULT BLOOD,URINE NEGATIVE (NEGATIVE); PH,URINE 6.5 PH (5.0-7.5); PROTEIN,URINE NEGATIVE (NEGATIVE); UROBILINOGEN,URINE 0.2 (NORMAL) E.U./dL (NORMAL)
[2017-07-24 11:59] LABS: ALBUMIN/GLOBULIN RATIO 1.6 (1.0-2.2); BILIRUBIN,TOTAL 0.6 mg/dL (0.2-1.0); CALCIUM 9.7 mg/dL (8.5-10.3); CLARITY,URINE CLEAR (CLEAR); CREATININE 0.9 mg/dL (0.4-1.0); TOTAL PROTEIN 8.2 g/dL (6.7-8.2)
[2017-07-24] MEDS ORDERED: IOPAMIDOL-300 100 ML VIAL IVP ONE (12:00)
--- NOTE | 2017-07-24 12:43 | CT Report ---
EXAM: CT ABDOMEN AND PELVIS EXAM DATE: 07/24/2017 11:51 AM. CLINICAL HISTORY: Diarrhea and lower/left abd pain. COMPARISONS: None. TECHNIQUE: Routine helical CT imaging was performed through the abdomen and pelvis. IV contrast: 100M L ISOVUE 300. Enteric contrast: No. Reconstructions: Coronal and sagittal. In accordance with CT protocol optimization, one or more of the following dose reduction techniques w ere utilized for this exam: automated exposure control, adjustment of mA and/or KV based on patient s ize, or use of iterative reconstructive technique. FINDINGS: Lung Bases: Tiny hypodensities too small to characterize but likely are present incidental cyst. No d efinite mass. Liver: Normal. No masses. Gallbladder/Bile Ducts: Unremarkable. Spleen: Normal. Pancreas: Normal. Adrenal Glands: Normal. Kidneys: Normal. No masses or hydronephrosis. Peritoneal Cavity/Bowel: No free air or adenopathy. No masses or acute inflammatory process. Mild tiny e fluid in the pelvic cul-de-sac. The appendix is well visualized and normal. Pelvic Organs: Normal bladder. Irregular left adnexal peripherally enhancing cystic lesion measures 2 .1 x 1.4 x 2.3 cm and is most consistent with a collapsing hemorrhagic cyst/follicle. The visualized pelvic organs otherwise are unremarkable. Vasculature: No aneurysms or other significant abnormality. Bones: No acute abnormality. Cyst with mild focal disk bulging at L1-L2. Other: None. IMPRESSION: 1. Irregular 2.3 cm left adnexal cystic lesion is compatible with a collapsing ovarian cyst. 2. Mild free fluid within the pelvic cul-de-sac. 3. Otherwise, no acute abnormality. [facility] Referring Provider Line: [phone] SITE ID: [id number]
--- NOTE | 2017-07-24 12:43 | CT Preliminary Report ---
Exam: CT ABDOMEN/PELVIS W/ IMPRESSION: 1. Irregular 2.3 cm left adnexal cystic lesion is compatible with a collapsing ovarian cyst. 2. Mild free fluid within the pelvic cul-de-sac. 3. Otherwise, no acute abnormality. [facility] SITE ID: [id number]
--- NOTE | 2017-07-24 15:33 | Ultrasound Report ---
EXAM: PELVIC ULTRASOUND EXAM DATE: 07/24/2017 03:17 PM. CLINICAL HISTORY: Left ovarian cyst/mass on CT. LMP approximately 07/03/2017. COMPARISON: CT abdomen/pelvis, same day. TECHNIQUE: Realtime transabdominal imaging of the pelvis with static image documentation. FINDINGS: Uterus: Anteverted position. 7.8 x 3.7 x 4.7 cm, volume 71 cc. Homogeneous myometrial echotexture. Endometrium: 10 mm. Normal. Cervix: Unremarkable. Right Ovary: 3.3 x 1.8 x 1.1 cm, volume 3.4 cc. Normal echotexture. Blood flow is present. Contains n ormal follicles. Left Ovary: 3.9 x 2.3 x 2.2 cm, volume 10.3 cc. Normal echotexture. Blood flow is present. Contains n ormal follicles, and a corpus luteum cyst measuring 1.4 cm. Free Fluid: Small volume anechoic intrapelvic free fluid, within physiologic limits. Other: None. IMPRESSION: 1. Left ovarian corpus luteum cyst, a physiologic finding indicating recent follicular rupture/ovulat ion. 2. Otherwise unremarkable premenopausal sonographic appearance of the uterus and ovaries. [facility] Referring Provider Line: [phone] SITE ID: [id number]
--- NOTE | 2017-07-24 15:33 | Ultrasound Preliminary Report ---
Exam: US PELVIC W/DOPPLER LIMITED IMPRESSION: 1. Left ovarian corpus luteum cyst, a physiologic finding indicating recent follicular rupture/ovulat ion. 2. Otherwise unremarkable premenopausal sonographic appearance of the uterus and ovaries. [facility] SITE ID: [id number]
[2017-07-24 15:37] VITALS: BP 113/80
--- NOTE | 2017-07-27 12:26 | ED Physician Documentation ---
ED Addendum - Addendum Addendum: 07/27/17 12:26 Notified per the lab that there is no stool viral panel available, they are still running a normal virus test.
== END 2017-07-24 16:51 | disposition home or self-care (01) ==
LOC: ED 10:16
DX: N83.12 Corpus luteum cyst of left ovary (principal); K29.00 Acute gastritis without bleeding
CPT/HCPCS: 36415; 74177; 76856; 80053; 81003; 83690; 83735; 85025; 87252; 87798; 93976; 96361; 96374; 99283; A9270; J2060; Q9967; 81001; 87086; 87177; 87209

== ENCOUNTER 2017-10-21 08:16 | Outpatient (CLI) | payer OTHER | END 2017-10-21 08:17 | disposition home or self-care (01) | LOC: DI 08:16 | PROVIDERS: ATTEND Family Medicine | DX: R07.89 Other chest pain (principal); R00.2 Palpitations | CPT/HCPCS: 93306 ==

== ENCOUNTER 2018-12-22 13:59 | Outpatient (CLI) | payer OTHER ==
--- NOTE | 2018-12-22 15:11 | Mammography Report ---
Reason: BASELINE SCREENING Procedure Date: 12/22/2018 Accession Number: [id number] / [id number] Procedure: [facility] - Screening Mammo Dig w/Implants CPT Code: FULL RESULT: EXAM: Screening Mammo Dig w/Implants DATE: 12/22/2018 2:37 PM CLINICAL HISTORY: Screening encounter. History of early menses. Personal history of bilateral breast augmentation. Baseline exam. TECHNIQUE: (B) - Bilateral CC and MLO views were obtained. COMPARISON: None PARENCHYMAL PATTERN: (D) - The breast(s) demonstrate(s) heterogeneously dense fibroglandular parenchyma. FINDINGS: Intact-appearing bilateral retromammary silicone type implants are noted. There are no suspicious masses, calcifications, or areas of distortion. IMPRESSION: Benign findings. BI-RADS category 2. RECOMMENDATION: (ANNUAL) - Recommend routine annual screening mammography. BI-RADS CATEGORY: (2) - Benign Findings. STANDARD QUALIFYING STATEMENTS: 1. This examination was not reviewed with the aid of Computer-Aided Detection (CAD). 2. A negative or benign imaging report should not preclude biopsy if clinically suspicious findings are present. 3. Dense breasts may obscure an underlying neoplasm. 4. This examination was reviewed without the aid of 3D breast imaging (tomosynthesis).
== END 2018-12-22 14:00 | disposition home or self-care (01) ==
LOC: DI 13:59
DX: Z12.31 Encounter for screening mammogram for malignant neoplasm of breast (principal); Z98.82 Breast implant status
CPT/HCPCS: 77063; 77067

== ENCOUNTER 2019-01-20 09:20 | Emergency (ER) | payer OTHER ==
[2019-01-20] MEDS ORDERED: LACTATED RINGERS 1,000 ML IV STA (09:44)
--- NOTE | 2019-01-20 09:47 | ED Physician Documentation ---
History of Present Illness - Stated complaint Stated Complaint: DIZZINESS - Chief complaint Chief Complaint: Neuro - Additonal information Additional information: This is a 43-year-old female with a history of of POT syndrome, presents with l ightheadedness. Patient states that she recently had her breast implants removed 3 days ago because they were recalled, and she states that whenever her body is under increased stress that she tends to have flares of her POTS syndrome. Today she has felt quite lightheaded, and at times and while lying down she has had some darkening of her peripheral vision and feeling like she is going to pass out. When she stands up the feeling gets worse. She states this has happened multiple times in the past and typically if she gets several liters of IV fluid she feels much better. She denies any fever or chills, no chest pain or shortness of breath. No focal weakness or numbness. No Unilateral leg swelling or redness, no history of blood clots. Review of Systems Constitutional: denies: Fever Cardiac: denies: Chest pain / pressure, Palpitations Respiratory: denies: Dyspnea GI: denies: Abdominal Pain Neurologic: reports: Other (lightheaded) PD PAST MEDICAL HISTORY - Past Medical History Cardiovascular: Other Respiratory: None Endocrine/Autoimmune: None GI: None PASSENGER SOLICITOR: None : None HEENT: None Psych: None Musculoskeletal: None Derm: None Other Past Medical History: POTS - Past Surgical History Past Surgical History: No /PASSENGER SOLICITOR: Breast implants, Other - Present Medications Home Medications: Ambulatory Orders Medication Instructions Recorded Confirmed LORazepam [Ativan] 0.5 mg PO BID PRN #12 tablet 07/22/17 Ondansetron HCl [Zofran] 4 mg PO Q6H PRN #20 tablet 07/22/17 Potassium Bicarbonate 25 meq PO DAILY #5 tablet 07/22/17 [K-Effervescent] Ranitidine HCl [Acid Control] 150 mg PO DAILY #30 tablet 07/22/17 Saccharomyces Boulardii [Florastor] 250 mg PO BID #28 capsule 07/22/17 Diphenoxylate HCl/Atropine 1 each PO Q6H PRN #20 tablet 07/24/17 [Diphenoxylate-Atrop 2.5-0.025] - Allergies Allergies/Adverse Reactions: Allergies Allergy/AdvReac Type Severity Reaction Status Date / Time No Known Drug Allergies Allergy Verified 01/20/19 09:28 - Social History Does the pt smoke?: No Smoking Status: Never smoker Does the pt drink ETOH?: Yes Does the pt have substance abuse?: No - Immunizations Immunizations are current?: Yes - POLST Patient has POLST: No PD ED PE NORMAL - Vitals Vital signs reviewed: Yes - General General: Alert and oriented X 3 - HEENT HEENT: PERRL - Neck Neck: Supple, no meningeal sign - Cardiac Cardiac: RRR, No murmur - Respiratory Respiratory: No respiratory distress, Clear bilaterally - Abdomen Abdomen: Soft, Non tender, Non distended - Derm Derm: Warm and dry - Extremities Extremities: No deformity - Neuro Neuro: Alert and oriented X 3, No motor deficit, Normal speech - Psych Psych: Normal mood, Normal affect Results - Vitals Vitals: Oxygen O2 Source Room air - Labs Labs: Laboratory Tests 01/20/19 01/20/19 01/20/19 09:48 09:48 09:48 WBC 7.7 RBC 4.61 Hgb 13.9 Hct 42.1 MCV 91.3 MCH 30.2 MCHC 33.0 RDW 12.4 Plt Count 202 MPV 11.3 H Neut # (Auto) 5.4 Lymph # (Auto) 1.6 [place] # (Auto) 0.6 Eos # (Auto) 0.2 Baso # (Auto) 0.0 Absolute Nucleated RBC 0.00 Nucleated RBC % 0.0 Sodium 138 Potassium 3.9 Chloride 103 Carbon Dioxide 28 Anion Gap 7.0 BUN 12 Creatinine 0.9 Estimated GFR (MDRD) 69 L Glucose 96 Calcium 9.5 Total Bilirubin 0.9 AST 22 ALT 19 Alkaline Phosphatase 39 L Total Protein 7.5 Albumin 4.0 Globulin 3.5 Albumin/Globulin Ratio 1.1 Lipase 40 Serum HCG, Qual NEGATIVE Urine Color Urine Clarity Urine pH Ur Specific [place] Urine Protein Urine Glucose (UA) Urine Ketones Urine Occult Blood Urine Nitrite Urine Bilirubin Urine Urobilinogen Ur Leukocyte Esterase Urine RBC Urine WBC Ur Squamous Epith Cells Urine Bacteria Ur Microscopic Review 01/20/19 11:05 WBC RBC Hgb Hct MCV MCH MCHC RDW Plt Count MPV Neut # (Auto) Lymph # (Auto) [place] # (Auto) Eos # (Auto) Baso # (Auto) Absolute Nucleated RBC Nucleated RBC % Sodium Potassium Chloride Carbon Dioxide Anion Gap BUN Creatinine Estimated GFR (MDRD) Glucose Calcium Total Bilirubin AST ALT Alkaline Phosphatase Total Protein Albumin Globulin Albumin/Globulin Ratio Lipase Serum HCG, Qual Urine Color LIGHT YELLOW Urine Clarity HAZY Urine pH 7.0 Ur Specific [place] 1.010 Urine Protein NEGATIVE Urine Glucose (UA) NEGATIVE Urine Ketones NEGATIVE Urine Occult Blood NEGATIVE Urine Nitrite NEGATIVE Urine Bilirubin NEGATIVE Urine Urobilinogen 0.2 (NORMAL) Ur Leukocyte Esterase NEGATIVE Urine RBC 0-5 Urine WBC 0-3 Ur Squamous Epith Cells MANY Squamous H Urine Bacteria Many H Ur Microscopic Review INDICATED PD MEDICAL DECISION MAKING - ED course Complexity details: considered differential (Orthostatic hypotension, anemia, electrolyte abnormality, dehydration) ED course: Patient is non-toxic on arrival. BP unremarkable. IV inserted and patient was given 2 L crystalloid. Labs reveal no anemia or electrolyte disturbance. She does not have symptoms or signs of infection. On patient's request I spoke to the surgeon who removed her breast implants, he states that the surgery went well and his only recommendation is to consider ciprofloxacin after she completes the keflex for further prophylaxis. On re-evaluation after fluids patient is feeling well, she has no orthostatic changes on sitting and standing, and given her improvement, she would like to go home. She states this is the typical course when she becomes symptomatic from her POTS. I discussed her surgeon's recommendation for cipro, she is not having any infectious signs or symptoms and would like to hold off. She still has around a week of keflex left, and she will discuss the cipro further with her surgeon on follow up. I discussed return precautions including syncope, fever, signs of infection, or any other concerning symptoms. Patient agrees and was discharged home in the care of family. Departure - Departure Disposition: 01 Home, Self Care Clinical Impression: Orthostatic dizziness Condition: Good Instructions: ED Dizziness UKO Follow-Up: SOFIA TRUJILLO DO [Primary Care Provider] - Comments: You were seen today for dizziness. After the fluids, your blood pressure has remained stable and is not changing when you get up from bed. I think this is likely related to your POTS. Please continue to be careful and make sure you sit for 20 seconds or so before standing to help prevent you from becoming lightheaded and passing out. Your labs are reassuring today, but if you develop any new concerning symptoms, or signs of infection such as redness around the incision sites, fever, or any other concerning symptoms, please return to the emergency department. Continue taking the antibiotic prescribed by your surgeon, and on your follow-up appointment discuss whether any further treatment is needed. Discharge Date/Time: 01/20/19 12:32
[2019-01-20 09:57] LABS: BASOPHILS % (AUTO) 0.5 %; EOSINOPHILS # (AUTO) 0.2 10^3/uL (0.0-0.7); EOSINOPHILS % (AUTO) 2.2 %; HGB - HEMOGLOBIN 13.9 g/dL (12.0-16.0); LYMPHOCYTES # (AUTO) 1.6 10^3/uL (1.5-3.5); LYMPHOCYTES % (AUTO) 20.1 %; MEAN CORPUSCULAR HEMOGLOBIN 30.2 pg (27.0-31.0); MEAN CORPUSCULAR VOLUME 91.3 fL (81.0-99.0); MEAN PLATELET VOLUME 11.3 fL (7.9-10.8); MONOCYTES # (AUTO) 0.6 10^3/uL (0.0-1.0); MONOCYTES % (AUTO) 7.4 %; NEUTROPHILS # (AUTO) 5.4 10^3/uL (1.5-6.6); NEUTROPHILS % (AUTO) 69.4 %; PLT - PLATELET COUNT 202 10^3/uL (130-450); RED BLOOD COUNT 4.61 10^6/uL (4.20-5.40); RED CELL DISTRIBUTION WIDTH 12.4 % (12.0-15.0); WHITE BLOOD COUNT 7.7 x10^3/uL (4.8-10.8)
[2019-01-20 10:12] LABS: ALBUMIN/GLOBULIN RATIO 1.1 (1.0-2.2); BILIRUBIN,TOTAL 0.9 mg/dL (0.2-1.0); CALCIUM 9.5 mg/dL (8.5-10.3); CREATININE 0.9 mg/dL (0.4-1.0); TOTAL PROTEIN 7.5 g/dL (6.7-8.2)
[2019-01-20 10:28] LABS: HCG,QUALITATIVE BLOOD NEGATIVE
[2019-01-20] MEDS ORDERED: SODIUM CHLORIDE 0.9% 1,000 ML IV ONE (10:31)
[2019-01-20 11:25] LABS: BILIRUBIN,URINE NEGATIVE (NEGATIVE); GLUCOSE, URINE (UA) NEGATIVE (NEGATIVE); KETONES,URINE (UA) NEGATIVE (NEGATIVE); LEUKOCYTE ESTERASE, URINE NEGATIVE (NEGATIVE); NITRITE,URINE NEGATIVE (NEGATIVE); OCCULT BLOOD,URINE NEGATIVE (NEGATIVE); PROTEIN,URINE NEGATIVE (NEGATIVE); UROBILINOGEN,URINE 0.2 (NORMAL) E.U./dL (NORMAL)
[2019-01-20 11:27] LABS: CLARITY,URINE HAZY (CLEAR)
[2019-01-20 11:40] LABS: BACTERIA,URINE Many /HPF (None Seen); RBC,URINE 0-5 /HPF (0-5); SQUAMOUS EPITHELIAL CELL,UR MANY Squamous (<= Few)
[2019-01-20 11:53] VITALS: BP 108/77
== END 2019-01-20 12:32 | disposition home or self-care (01) ==
LOC: ED 09:20
DX: I49.8 Other specified cardiac arrhythmias (principal); R42 Dizziness and giddiness; Z98.890 Other specified postprocedural states
CPT/HCPCS: 36415; 80053; 81001; 83690; 84703; 85025; 96360; 99282; 99283; J7120; 81003

== ENCOUNTER 2019-01-30 08:18 | Emergency (ER) | payer OTHER ==
[2019-01-30 08:53] LABS: BILIRUBIN,URINE NEGATIVE (NEGATIVE); GLUCOSE, URINE (UA) NEGATIVE (NEGATIVE); KETONES,URINE (UA) NEGATIVE (NEGATIVE); LEUKOCYTE ESTERASE, URINE TRACE (NEGATIVE); NITRITE,URINE NEGATIVE (NEGATIVE); OCCULT BLOOD,URINE LARGE (NEGATIVE); PH,URINE 6.5 PH (5.0-7.5); PROTEIN,URINE NEGATIVE (NEGATIVE); UROBILINOGEN,URINE 0.2 (NORMAL) E.U./dL (NORMAL)
[2019-01-30] MEDS ORDERED: SODIUM CHLORIDE 0.9% 1,000 ML IV ONE (08:55)
[2019-01-30 09:01] LABS: CLARITY,URINE CLEAR (CLEAR); HCG UR QUAL NEGATIVE
[2019-01-30 09:02] LABS: BACTERIA,URINE Rare /HPF (None Seen); RBC,URINE 0-5 /HPF (0-5); SQUAMOUS EPITHELIAL CELL,UR NONE SEEN (<= Few)
--- NOTE | 2019-01-30 09:05 | ED Physician Documentation ---
History of Present Illness - Stated complaint Stated Complaint: POST SURGICAL COMPLICATIONS - Chief complaint Chief Complaint: General - Additonal information Additional information: This is a 43-year-old female who is known to me from a previous visit, who presents with general malaise, tremor, and elevated heart rate. Patient had breast implants removed around 3 weeks ago, because it sounds like her breast implants were causing her to feel sick and it was thought that they were being rejected by her body, and they had a recall on them. She was on Keflex for 2 weeks afterwards, she completed the course 5 days ago. She saw her surgeon yesterday, and he reportedly told her that her body rejected the superficial stitches, and she has some wound dehiscence, but she has not had any purulent drainage or redness expanding out from the site of the inframammary incisions. She states that she feels shaky, she has had a and some general malaise. This morning she also felt lightheaded, which is not atypical due to her POTS. Given her combination of symptoms she presents to be evaluated. No fever. Review of Systems Constitutional: denies: Fever Nose: denies: Rhinorrhea / runny nose Cardiac: denies: Chest pain / pressure Respiratory: denies: Dyspnea : denies: Dysuria Skin: reports: Other (Incisional wounds under breasts) Neurologic: reports: Generalized weakness PD PAST MEDICAL HISTORY - Past Medical History Cardiovascular: Other Respiratory: None Endocrine/Autoimmune: None GI: None BROKER ASSISTANT: None : None HEENT: None Psych: None Musculoskeletal: None Derm: None - Past Surgical History Past Surgical History: No /BROKER ASSISTANT: Breast implants, Other - Present Medications Home Medications: Ambulatory Orders Medication Instructions Recorded Confirmed LORazepam [Ativan] 0.5 mg PO BID PRN #12 tablet 07/22/17 Ondansetron HCl [Zofran] 4 mg PO Q6H PRN #20 tablet 07/22/17 Potassium Bicarbonate 25 meq PO DAILY #5 tablet 07/22/17 [K-Effervescent] Ranitidine HCl [Acid Control] 150 mg PO DAILY #30 tablet 07/22/17 Saccharomyces Boulardii [Florastor] 250 mg PO BID #28 capsule 07/22/17 Diphenoxylate HCl/Atropine 1 each PO Q6H PRN #20 tablet 07/24/17 [Diphenoxylate-Atrop 2.5-0.025] - Allergies Allergies/Adverse Reactions: Allergies Allergy/AdvReac Type Severity Reaction Status Date / Time No Known Drug Allergies Allergy Verified 01/30/19 08:30 - Social History Does the pt smoke?: No Smoking Status: Never smoker Does the pt drink ETOH?: Yes Does the pt have substance abuse?: No - Immunizations Immunizations are current?: Yes - POLST Patient has POLST: No PD ED PE NORMAL - General General: Alert and oriented X 3 - HEENT HEENT: PERRL - Neck Neck: Other (Normal ROM) - Cardiac Cardiac: RRR - Respiratory Respiratory: No respiratory distress, Clear bilaterally - Abdomen Abdomen: Soft, Non tender, Non distended - Female Female : Other (Breast exam, chaperoned by there are bilateral inframammary incisions with small amount of superficial dehiscence, the wound edges are by around 0.5 cm in some places. There is some crusting over the incisional site, but there is no fluctuance, no purulent drainage, and no erythema extending from the wound margins) - Neuro Neuro: Alert and oriented X 3, toddler teacher 2-12 intact, No motor deficit, No sensory deficit, Normal speech Results - Vitals Vitals: Oxygen O2 Source Room air - EKG (time done) 9:11 Other comments: Other comments (ND, rhythm sinus, there is no ST segment elevation or depression, no abnormal T wave inversions. Intervals are within normal limits.) - Labs Labs: Microbiology 01/30/19 08:37 Urine Culture - Final Urine,Clean Catch LESS THAN 10,000 COLONIES/ML polymicrobial growth including potential pathogens. This is suggestive of skin or other contamination. Laboratory Tests 01/30/19 01/30/19 01/30/19 08:37 09:12 09:15 WBC 6.8 RBC 4.39 Hgb 13.3 Hct 39.9 MCV 90.9 MCH 30.3 MCHC 33.3 RDW 11.9 L Plt Count 279 MPV 11.0 H Neut # (Auto) 5.1 Lymph # (Auto) 1.1 L [place] # (Auto) 0.5 Eos # (Auto) 0.1 Baso # (Auto) 0.0 Absolute Nucleated RBC 0.00 Nucleated RBC % 0.0 Sodium 140 Potassium 3.8 Chloride 104 Carbon Dioxide 26 Anion Gap 10.0 BUN 10 Creatinine 0.8 Estimated GFR (MDRD) 79 L Glucose 87 Calcium 9.4 Total Bilirubin 0.7 AST 21 ALT 17 Alkaline Phosphatase 49 C-Reactive Protein < 1.0 Total Protein 7.8 Albumin 4.5 Globulin 3.3 Albumin/Globulin Ratio 1.4 Lipase 40 Urine Color LT RED Urine Clarity CLEAR Urine pH 6.5 Ur Specific [place] <=1.005 Urine Protein NEGATIVE Urine Glucose (UA) NEGATIVE Urine Ketones NEGATIVE Urine Occult Blood LARGE H Urine Nitrite NEGATIVE Urine Bilirubin NEGATIVE Urine Urobilinogen 0.2 (NORMAL) Ur Leukocyte Esterase TRACE H Urine RBC 0-5 Urine WBC 0-3 Urine WBC Clumps Ur Squamous Epith Cells NONE SEEN Urine Bacteria Rare Ur Microscopic Review INDICATED Urine Culture Comments INDICATED Urine HCG, Qual NEGATIVE PD MEDICAL DECISION MAKING - ED course Complexity details: considered differential (Wound infection, electrolyte abnormality, dysrhythmia, stress reaction) ED course: On exam patient is nontoxic-appearing, vital signs in triage note tachycardia which had resolved by the time of my examination. Her wounds do have some superficial dehiscence, without signs of infection. She is being monitored closely by her breast surgeon for this, had an appointment with him yesterday, and is following up with them tomorrow as well. Labs were drawn, CBC is unremarkable, CRP is normal, electrolytes are unremarkable. UA negative for infection and hCG negative. EKG shows no signs of ischemia. On repeat evaluation after one liter of fluid patient is feeling better. She continues have unremarkable vital signs. I discussed with her that her labs are reassuring I do not see signs of a more serious wound infection or clear cause of her malaise at this time, but I encouraged her to continue to follow closely with her breast surgeon. I also discussed that if she has worsening of her symptoms, she should return to the emergency department. Departure - Departure Disposition: 01 Home, Self Care Clinical Impression: Wound dehiscence Condition: Good Comments: Your labs today are reassuring, and your EKG looked normal. Although the wounds under your breasts are somewhat seperated, I do not see signs of a significant infection at this time. Please discuss wound care further with your surgeon tomorrow, and discuss whether you may benefit from a topical antibiotic ointment or if he would like you to keep the wounds dry. If you are having signs of worsening infection such as pus draining from the wounds, fever, or other concerning symptoms, please return to the emergency department. Discharge Date/Time: 01/30/19 10:36
[2019-01-30 09:33] LABS: BASOPHILS % (AUTO) 0.6 %; EOSINOPHILS # (AUTO) 0.1 10^3/uL (0.0-0.7); EOSINOPHILS % (AUTO) 2.1 %; HGB - HEMOGLOBIN 13.3 g/dL (12.0-16.0); LYMPHOCYTES # (AUTO) 1.1 10^3/uL (1.5-3.5); LYMPHOCYTES % (AUTO) 15.4 %; MEAN CORPUSCULAR HEMOGLOBIN 30.3 pg (27.0-31.0); MEAN CORPUSCULAR HGB CONC 33.3 g/dL (32.0-36.0); MEAN CORPUSCULAR VOLUME 90.9 fL (81.0-99.0); MONOCYTES # (AUTO) 0.5 10^3/uL (0.0-1.0); MONOCYTES % (AUTO) 6.8 %; NEUTROPHILS # (AUTO) 5.1 10^3/uL (1.5-6.6); NEUTROPHILS % (AUTO) 74.8 %; PLT - PLATELET COUNT 279 10^3/uL (130-450); RED BLOOD COUNT 4.39 10^6/uL (4.20-5.40); RED CELL DISTRIBUTION WIDTH 11.9 % (12.0-15.0); WHITE BLOOD COUNT 6.8 x10^3/uL (4.8-10.8)
[2019-01-30 09:58] LABS: ALBUMIN 4.5 g/dL (3.2-5.5); ALBUMIN/GLOBULIN RATIO 1.4 (1.0-2.2); ALKALINE PHOSPHATASE 49 IU/L (42-121); ALT ALANINE AMINOTRANSFERASE 17 IU/L (10-60); AST ASPARTATE AMINOTRANSFERASE 21 IU/L (10-42); BILIRUBIN,TOTAL 0.7 mg/dL (0.2-1.0); BUN - BLOOD UREA NITROGEN 10 mg/dL (6-20); CALCIUM 9.4 mg/dL (8.5-10.3); CARBON DIOXIDE - CO2 26 mmol/L (21-32); CHLORIDE 104 mmol/L (101-111); CREATININE 0.8 mg/dL (0.4-1.0); GFR - MDRD 79 (>89); GLUCOSE 87 mg/dL (70-100); LIPASE 40 U/L (22-51); SODIUM 140 mmol/L (135-145); TOTAL PROTEIN 7.8 g/dL (6.7-8.2)
[2019-01-30 09:59] LABS: CRP - C-REACTIVE PROTEIN < 1.0 mg/dL (0-1.0)
[2019-01-30 10:33] VITALS: BP 119/77
== END 2019-01-30 10:36 | disposition home or self-care (01) ==
LOC: ED 08:18
DX: T81.31XA Disruption of external operation (surgical) wound, not elsewhere classified, initial encounter (principal); Y83.8 Other surgical procedures as the cause of abnormal reaction of the patient, or of later complication, without mention of misadventure at the time of the procedure; Z98.890 Other specified postprocedural states; I49.8 Other specified cardiac arrhythmias; R53.81 Other malaise
CPT/HCPCS: 36415; 80053; 81001; 81003; 81025; 83690; 85025; 86140; 87086; 93005; 96360; 99282

== ENCOUNTER 2019-02-08 09:08 | Emergency (ER) | payer OTHER ==
--- NOTE | 2019-02-08 09:36 | ED Physician Documentation ---
History of Present Illness - Stated complaint Stated Complaint: WEAKNESS/CHILLS - Chief complaint Chief Complaint: General - History obtained from History obtained from: Patient - History of Present Illness Timing: How many weeks ago (3) Severity Comments: mild to moderate Quality: aching Radiates to: none Improved by: improved a little with keflex last week Worsened by: nothing Associated symptoms: denies nausea, vomiting, fever, abdominal pain. No redness or swelling of the wound sites - Treatment prior to arrival Treatment prior to arrival: took keflex last week - Additonal information Additional information: 43 y/o F several weeks s/p breast implant removal reports she has had poorly healing wound since the surgery and continues to have poor healing. Her surgeon gave her keflex last week which improved her wound a little but then it worsened again after stopping it. She is here for a second opinion because she is concerned about an infection. Her surgeon prescribed her cipro but she refused to take that because she felt it was too strong so he instead offered her clindamycin but she wanted to get a second opinion before starting this antibiotic. Review of Systems Ten Systems: 10 systems reviewed and negative Constitutional: reports: Chills, Fatigue. denies: Fever Throat: reports: Sore throat Cardiac: reports: Reviewed and negative Respiratory: reports: Reviewed and negative GI: reports: Reviewed and negative Skin: reports: Other (poor wound healing) Musculoskeletal: reports: Reviewed and negative Neurologic: reports: Reviewed and negative Endocrine: denies: Swollen lymph nodes Immunocompromised: reports: Reviewed and negative PD PAST MEDICAL HISTORY - Past Medical History Past Medical History: Yes Cardiovascular: Other Respiratory: None Endocrine/Autoimmune: None GI: None CHIEF BUSINESS OFFICER: None : None HEENT: None Psych: None Musculoskeletal: None Derm: None - Past Surgical History Past Surgical History: No /CHIEF BUSINESS OFFICER: Breast implants, Other - Present Medications Home Medications: Ambulatory Orders Medication Instructions Recorded Confirmed LORazepam [Ativan] 0.5 mg PO BID PRN #12 tablet 07/22/17 Ondansetron HCl [Zofran] 4 mg PO Q6H PRN #20 tablet 07/22/17 Potassium Bicarbonate 25 meq PO DAILY #5 tablet 07/22/17 [K-Effervescent] Ranitidine HCl [Acid Control] 150 mg PO DAILY #30 tablet 07/22/17 Saccharomyces Boulardii [Florastor] 250 mg PO BID #28 capsule 07/22/17 Diphenoxylate HCl/Atropine 1 each PO Q6H PRN #20 tablet 07/24/17 [Diphenoxylate-Atrop 2.5-0.025] - Allergies Allergies/Adverse Reactions: Allergies Allergy/AdvReac Type Severity Reaction Status Date / Time No Known Drug Allergies Allergy Verified 02/08/19 09:15 - Social History Does the pt smoke?: No Smoking Status: Never smoker Does the pt drink ETOH?: Yes Does the pt have substance abuse?: No - Immunizations Immunizations are current?: Yes - POLST Patient has POLST: No PD ED PE NORMAL - Vitals Vital signs reviewed: Yes - General General: Alert and oriented X 3, No acute distress, Well developed/nourished - HEENT HEENT: Atraumatic, Pharynx benign - Neck Neck: Supple, no meningeal sign, No JVD - Cardiac Cardiac: RRR - Respiratory Respiratory: No respiratory distress - Abdomen Abdomen: Soft, Non distended - Female Female : Deferred - Rectal Rectal: Deferred - Extremities Extremities: No deformity - Neuro Neuro: Alert and oriented X 3 Eye Opening: Spontaneous Motor: Obeys Commands Verbal: Oriented GCS Score: 15 - Psych Psych: Normal mood, Normal affect PD ED PE EXPANDED - Derm Derm: Normal color, Warm and dry, Other (she has bilateral inferior breast incisional wounds which are poorly healing, with irregular edges but have no surrounding redness, swelling, drainage or discharge. no cellulitis or abscess). No: Pale, Jaundiced, Diaphoretic, Rash, Abscess Results - Vitals Vitals: Vital Signs - 24 hr 02/08/19 02/08/19 09:15 09:38 Temperature 36.7 C 36.9 C Heart Rate 96 77 Respiratory 17 16 Rate Blood Pressure 125/89 H 116/85 H O2 Saturation 99 100 Oxygen O2 Source Room air PD MEDICAL DECISION MAKING - ED course Complexity details: considered differential, d/w patient ED course: ddx- poorly healing wounds, abscess, cellulitis 43 y/o F s/p surgery for breast implant removal. Hx of POTS disease. She is afebrile with normal vitals and her exam is benign except for poorly healing incisional scars. There however is not evidence of cellulitis or abscess on exam. It is possible the poor healing is due to some infection. I think it's reasonable for her to follow her surgeons advice and initiate the clindamycin since there was some improvement with antibiotics in the past. Pt is stable for discharge. Departure - Departure Disposition: 01 Home, Self Care Clinical Impression: Nonhealing surgical wound Qualifiers: Encounter type: initial encounter Qualified Code(s): T81.89XA - Other complications of procedures, not elsewhere classified, initial encounter Condition: Stable Record reviewed to determine appropriate education?: Yes Instructions: Surgical Site Infecs Prevent Follow-Up: your, surgeon [Other] Comments: Your wounds were evaluated and while they do not appear to be having cellulitis or abscess formation I do agree that the edges are not healing well. It is reasonable to start the clindamycin and see if that improves the healing since there could be an underyling bacterial infection that's reducing healing. Regardless please follow up with your surgeon to further manage your wound care. If you develop a fever or purulent drainage from the wounds you should return to your surgeon or if you cannot see him urgently then come back to the Emergency Department.
[2019-02-08 10:13] VITALS: BP 117/76
== END 2019-02-08 10:13 | disposition home or self-care (01) ==
LOC: ED 09:08
DX: T81.89XA Other complications of procedures, not elsewhere classified, initial encounter (principal); Z98.890 Other specified postprocedural states; Y83.8 Other surgical procedures as the cause of abnormal reaction of the patient, or of later complication, without mention of misadventure at the time of the procedure; Z86.79 Personal history of other diseases of the circulatory system
CPT/HCPCS: 99282

== ENCOUNTER 2019-12-27 09:06 | Outpatient (CLI) | payer OTHER ==
--- NOTE | 2019-12-28 08:31 | Mammography Report ---
BILATERAL DIGITAL DIAGNOSTIC MAMMOGRAM 3D/2D: 12/27/2019 CLINICAL: Palpable lumps in both breasts. Comparison is made to exam dated: 12/22/2018 mammogram - [facility]. The tissue of both breasts is heterogeneously dense. This may lower the sensitivity of mammography. Implants have been removed. There is a 7 mm oval asymmetry in the left breast middle depth central to the nipple seen on the medi olateral oblique view only. This is not significantly changed compared to previous. No other significant masses, calcifications, or other findings are seen in either breast. Specifical ly, no findings to correspond to the patient's numerous palpable abnormalities. IMPRESSION: INCOMPLETE: NEEDS ADDITIONAL IMAGING EVALUATION The 7 mm oval asymmetry in the left breast is indeterminate. An ultrasound is recommended. This was performed immediately following this exam. No other discrete mammographic abnormalities to correspond to numerous palpable areas bilaterally, bu t ultrasound will be performed for those areas as well. This exam was interpreted at Station ID: [id number]. NOTE: For mammograms, a report in lay terms will be sent to the patient. Approximately 15% of breast malignancies will not be visualized mammographically. In the management of a palpable breast mass, a negative mammogram must not discourage biopsy of a clinically suspicious lesion. Electronically Signed By: Juliet alejandra/:12/27/2019 10:15:15 ACR BI-RADS Category 0: Incomplete 3340F PARENCHYMAL PATTERN: (D) - The breast(s) demonstrate(s) heterogeneously dense fibroglandular bart castaneda. BI-RADS CATEGORY: (0) - 0 Ultrasound [id number] Immediate follow-up LATERALITY: (B)
--- NOTE | 2019-12-28 08:32 | Ultrasound Report ---
LIMITED ULTRASOUND OF RIGHT BREAST: 12/27/2019 CLINICAL: Palpable lumps in both breasts. Comparison is made to exam dated: 12/22/2018 mammogram - [facility]. Real-time ultrasound of the right breast upper inner, upper outer, and and lower outer quadrants rolanda ons was performed. Morrison scale images of the real-time examination were reviewed. The breast tissue of the right breast is heterogeneous. No significant abnormalities were seen sonographically in the right breast. IMPRESSION: NEGATIVE There is no sonographic evidence of malignancy. Return to annual mammogram screening schedule is recommended. Findings and recommendations were conveyed to the patient at time of exam. This exam was interpreted at Station ID: [id number]. Electronically Signed By: Juliet alejandra/:12/27/2019 11:00:26 Ultrasound BI-RADS: 1 Negative BI-RADS CATEGORY: (1) - 1 RECOMMENDATION: (ANNUAL) - Recommend routine annual screening mammography. [id number] return to screening LATERALITY: (B)
--- NOTE | 2019-12-28 08:33 | Ultrasound Report ---
LIMITED ULTRASOUND OF LEFT BREAST: 12/27/2019 CLINICAL: Palpable lumps in both breasts. Comparison is made to exams dated: 12/27/2019 mammogram and 12/22/2018 mammogram - [facility]. Ultrasound of the right breast 8 o'clock region and real-time ultrasound of the left breast was perfo rmed. Morrison scale images of the real-time examination were reviewed. The breast tissue of the left breast is heterogeneous. There is a benign 0.3 cm x 0.3 cm x 0.2 cm cyst in the left breast at 8 o'clock middle depth 3 cm fro m the nipple. This correlates with mammography findings. Color flow imaging demonstrates that there is no vascularity present. NO other finding to correspond to the patient's palpable abnormality. IMPRESSION: BENIGN There is no sonographic evidence of malignancy. The 0.3 cm x 0.3 cm x 0.2 cm cyst in the left breast is consistent with a simple cyst and is benign. Return to annual mammogram screening schedule is recommended. Findings and recommendations were conveyed to the patient at time of exam. This exam was interpreted at Station ID: [id number]. Electronically Signed By: Juliet alejandra/:12/28/2019 08:23:26 Entry: - 12/28/2019 08:23:26 Ultrasound BI-RADS: 2 Benign BI-RADS CATEGORY: (2) - 2 RECOMMENDATION: (ANNUAL) - Recommend routine annual screening mammography. [id number] return to screening LATERALITY: (B)
== END 2019-12-27 09:07 | disposition home or self-care (01) ==
LOC: DI 09:06
PROVIDERS: ATTEND Family Medicine
DX: N60.02 Solitary cyst of left breast (principal); Z98.86 Personal history of breast implant removal
CPT/HCPCS: 76642; 77066

== ENCOUNTER 2021-08-06 20:33 | Emergency (ER) | payer OTHER ==
--- OUTSIDE RECORDS SUMMARY | 2021-08-06 21:10 | EXTERNAL MEDICAL SUMMARY RPT | Continuity of Care Document ---
:1975 Author Organization [place] Address [address] [place] [address] Phone Care Team Providers Name Role Phone Altamirano Unavailable Unavailable Allergies No information. Encounters No information. Medications No information. Problems Procedures date description facility [id number] [facility] Results No information. Vital Signs date measurement value source 20210731 weight_standard 126.99 lb [id number] weight_metric 57.6 kg 20210731 temperature_standard 96 F [id number] temperature_metric 35.56 C 20210731 respiration_rate 18 /min 20210731 height_standard 65 in [id number] height_metric 165.1 cm 20210731 heart_rate 77 /min [id number] BP_systolic 127 mm[Hg] 20210731 BP_diastolic 73 mm[Hg] 20210731 BMI 21.1 kg/m2
--- NOTE | 2021-08-06 21:18 | ED Physician Documentation ---
PD HPI ABD PAIN - Stated complaint Stated Complaint: LOW ABD PX - Chief complaint Chief Complaint: General - History obtained from History obtained from: Patient - History of Present Illness Timing - onset: How many days ago (6) Timing - details: Gradual onset Pain level now: 6 Quality: Pain Location: Other (across lower anterior pelvis including suprapubic region.) Improved by: Other (no ameliorating factors) Worsened by: Other (no exacerbating factors) Associated symptoms: Vaginal bleeding. No: Fever, Nausea, Vomiting, Hematemesis, Diarrhea, Constipation, Dysuria Similar symptoms before: Diagnosis (see below) Recently seen: Emergency Dept - Additional information Additional information: c/o six days of pain across anterior pelvis with vaginal swelling, vaginal bleeding (not currently menstruating), rectal pressure. She denies chances of . She denies h/o similar symptoms. She was evaluated at ED 6 days ago for this, w/u included CT A/P which reportedly (per patient) demonstrated collapsing/collapsed ovarian cyst. Patient says she was called just today and was told that a result of a test had come back indicating patient has vaginitis and thus rx for metronidazole was called in to her pharmacy. She has taken one dose today of what is to be a BID x 1 week course. She says she contacted her PMD who doubted the diagnosis and advised patient to come to this ED at this time for a second opinion (per patient). Review of Systems Constitutional: reports: Reviewed and negative Cardiac: reports: Reviewed and negative Respiratory: reports: Reviewed and negative GI: reports: Reviewed and negative : reports: Vaginal bleeding. 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: None : None HEENT: None Psych: None Musculoskeletal: None Derm: None - Past Surgical History Past Surgical History: No /HIGH SCHOOL GUIDANCE COUNSELOR: Breast implants, Other - Present Medications Home Medications: Ambulatory Orders Medication Instructions Recorded Confirmed LORazepam [Ativan] 0.5 mg PO BID PRN #12 tablet 07/22/17 Potassium Bicarbonate 25 meq PO DAILY #5 tablet 07/22/17 [K-Effervescent] Saccharomyces Boulardii [Florastor] 250 mg PO BID #28 capsule 04/27/18 ondansetron HCL [Zofran] 4 mg PO Q6H PRN #20 tablet 07/22/17 raNITIdine HCl [Acid Control] 150 mg PO DAILY #30 tablet 07/22/17 Diphenoxylate HCl/Atropine 1 each PO Q6H PRN #20 tablet 07/24/17 [Diphenoxylate-Atrop 2.5-0.025] - Allergies Allergies/Adverse Reactions: Allergies Allergy/AdvReac Type Severity Reaction Status Date / Time No Known Drug Allergies Allergy Verified 02/08/19 09:15 - Social History Does the pt smoke?: No Smoking Status: Never smoker Does the pt drink ETOH?: Yes Does the pt have substance abuse?: No - Immunizations Immunizations are current?: Yes - POLST Patient has POLST: No PD ED PE NORMAL - Vitals Vital signs reviewed: Yes - General General: Alert and oriented X 3, No acute distress, Well developed/nourished - HEENT HEENT: Moist mucous membranes - Neck Neck: Supple, no meningeal sign - Cardiac Cardiac: RRR, No murmur, No gallop, No rub - Respiratory Respiratory: No respiratory distress, Clear bilaterally - Abdomen Abdomen: Normal bowel sounds, Soft, Non distended, Other (mild TTP across lower abdomen, predominantly RLQ without rebound or guarding) - Back Back: No CVA TTP - Derm Derm: Normal color, Warm and dry Results - Vitals Vitals: Oxygen O2 Source Room air - Labs Labs: Laboratory Tests 08/06/21 08/06/21 08/06/21 21:45 21:53 21:53 WBC 7.3 RBC 4.61 Hgb 13.9 Hct 41.8 MCV 90.7 MCH 30.2 MCHC 33.3 RDW 12.3 Plt Count 267 MPV 10.9 H Neut # (Auto) 3.3 Lymph # (Auto) 2.7 [place] # (Auto) 0.7 Eos # (Auto) 0.5 Baso # (Auto) 0.1 Absolute Nucleated RBC 0.00 Nucleated RBC % 0.0 Sodium 136 Potassium 3.7 Chloride 101 Carbon Dioxide 29 Anion Gap 6.0 BUN 20 Creatinine 0.9 Estimated GFR (MDRD) 68 L Glucose 94 Calcium 9.7 Total Bilirubin 0.5 AST 18 ALT 20 Alkaline Phosphatase 59 Total Protein 7.9 Albumin 4.6 Globulin 3.3 Albumin/Globulin Ratio 1.4 Lipase 61 H Urine Color YELLOW Urine Clarity CLEAR Urine pH 7.5 Ur Specific Bruni 1.010 Urine Protein NEGATIVE Urine Glucose (UA) NEGATIVE Urine Ketones NEGATIVE Urine Occult Blood SMALL H Urine Nitrite NEGATIVE Urine Bilirubin NEGATIVE Urine Urobilinogen 0.2 (NORMAL) Ur Leukocyte Esterase NEGATIVE Urine RBC 0-5 Urine WBC 0-3 Ur Squamous Epith Cells RARE Squamous Urine Bacteria None Seen Ur Microscopic Review INDICATED Urine Culture Comments NOT INDICATED Urine HCG, Qual NEGATIVE - Rads (name of study) pelvic US Radiology: Prelim report reviewed, See rad report PD MEDICAL DECISION MAKING - ED course Complexity details: reviewed results, re-evaluated patient, considered differential, d/w patient ED course: no concerning findings on CBC, ER abdominal panel, UA; results are nearly all normal, with minimally elevated lipase and trace blood in urine. Normal pelvic US, with no free fluid, no evidence of torsion. She declines pelvic exam, has appointment coming up in a few days and will wait until then. Results reviewed, lack of diagnosis discussed as were return precautions. I was able to obtain and review records from patients visit to ED and they indicate patients urine grew out G. vaginalis and thus an rx for BID flagyl x 1 week was sent to her pharmacy. I advised her to continue this as prescribed; while some of the symptoms do not sound c/w vaginitis, others might be c/w vaginitis (sensation of vaginal pain and swelling). Departure - Departure Disposition: 01 Home, Self Care Clinical Impression: Pelvic pain in female Condition: Good Instructions: ED Pelvic Pain UKO Follow-Up: SOFIA TRUJILLO, [Primary Care Provider] - Comments: As we discussed, the results of tonight's tests are unremarkable and without diagnostic findings. In reviewing the chart from your recent visit to [facility] emergency department, it indicates that one of your tests showed a bacteria called gardnerella vaginalis, which is a cause of vaginitis; this is why the antibiotic (metronidazole) was prescribed for you. While there are false positive results, and your symptoms are not strongly suggestive of vaginitis, some of the symptoms you described could be due to this organism and thus I recommend you continue the antibiotic as prescribed. Discharge Date/Time: 08/06/21 23:56
[2021-08-06 21:53] LABS: BILIRUBIN,URINE NEGATIVE (NEGATIVE); GLUCOSE, URINE (UA) NEGATIVE (NEGATIVE); KETONES,URINE (UA) NEGATIVE (NEGATIVE); LEUKOCYTE ESTERASE, URINE NEGATIVE (NEGATIVE); NITRITE,URINE NEGATIVE (NEGATIVE); OCCULT BLOOD,URINE SMALL (NEGATIVE); PH,URINE 7.5 PH (5.0-7.5); PROTEIN,URINE NEGATIVE (NEGATIVE); UROBILINOGEN,URINE 0.2 (NORMAL) E.U./dL (NORMAL)
[2021-08-06 21:58] LABS: CLARITY,URINE CLEAR (CLEAR); HCG UR QUAL NEGATIVE
[2021-08-06 21:59] LABS: BACTERIA,URINE None Seen /HPF (None Seen); RBC,URINE 0-5 /HPF (0-5); SQUAMOUS EPITHELIAL CELL,UR RARE Squamous (<= Few); WBC,URINE 0-3 /HPF (0-5)
[2021-08-06 22:01] LABS: BASOPHILS # (AUTO) 0.1 10^3/uL (0.0-0.1); BASOPHILS % (AUTO) 1.2 %; EOSINOPHILS # (AUTO) 0.5 10^3/uL (0.0-0.7); EOSINOPHILS % (AUTO) 6.5 %; HCT - HEMATOCRIT 41.8 % (37.0-47.0); HGB - HEMOGLOBIN 13.9 g/dL (12.0-16.0); LYMPHOCYTES # (AUTO) 2.7 10^3/uL (1.5-3.5); MEAN CORPUSCULAR HEMOGLOBIN 30.2 pg (27.0-31.0); MEAN CORPUSCULAR HGB CONC 33.3 g/dL (32.0-36.0); MEAN CORPUSCULAR VOLUME 90.7 fL (81.0-99.0); MEAN PLATELET VOLUME 10.9 fL (7.9-10.8); MONOCYTES # (AUTO) 0.7 10^3/uL (0.0-1.0); MONOCYTES % (AUTO) 9.5 %; NEUTROPHILS # (AUTO) 3.3 10^3/uL (1.5-6.6); NEUTROPHILS % (AUTO) 45.5 %; PLT - PLATELET COUNT 267 10^3/uL (130-450); RED BLOOD COUNT 4.61 10^6/uL (4.20-5.40); RED CELL DISTRIBUTION WIDTH 12.3 % (12.0-15.0); WHITE BLOOD COUNT 7.3 x10^3/uL (4.8-10.8)
[2021-08-06 22:11] LABS: ALBUMIN 4.6 g/dL (3.2-5.5); ALBUMIN/GLOBULIN RATIO 1.4 (1.0-2.2); BILIRUBIN,TOTAL 0.5 mg/dL (0.2-1.0); CALCIUM 9.7 mg/dL (8.5-10.3); CREATININE 0.9 mg/dL (0.4-1.0); POTASSIUM 3.7 mmol/L (3.5-5.0); TOTAL PROTEIN 7.9 g/dL (6.7-8.2)
--- NOTE | 2021-08-06 23:06 | Ultrasound Report ---
PROCEDURE: Pelvic w/Doppler Limited INDICATIONS: Pelvic pain Rt TECHNIQUE: Real-time transabdominal scanning was performed of the pelvic organs, with image documentation. Dopp ler interrogation was performed of the ovaries bilaterally. COMPARISON: Pelvic ultrasound 07/24/2017. FINDINGS: Uterus: Uterus is anteverted and measures 7.3 x 3.56 cm. Endometrium measures 0.4 cm in combined thi ckness. Ovaries: The right ovary measures 3.2 x 3 x 1.6 cm for a volume of 3.1 mL. The left ovary measures 2 x 3.3 x 1.5 cm for a volume of 5.2 mL. Normal appearing arterial and venous waveforms demonstrated w ithin the ovaries bilaterally. Other: No free pelvic fluid. IMPRESSION: 1. No sonographic evidence of ovarian torsion. 2. No acute sonographic abnormality identified in the pelvis Reviewed by: Cameron Mares MD on 08/06/2021 11:04 PM PDT Approved by: Cameron Mares MD on 08/06/2021 11:04 PM PDT Station ID: [id number]
[2021-08-06 23:56] VITALS: BP 112/66
== END 2021-08-06 23:56 | disposition home or self-care (01) ==
LOC: ED 20:33
DX: R10.2 Pelvic and perineal pain (principal)
CPT/HCPCS: 36415; 80053; 81001; 81003; 81025; 83690; 85025; 87086; 93976; 99282; 99284

== ENCOUNTER 2021-08-22 00:27 | Emergency (ER) | payer OTHER ==
--- OUTSIDE RECORDS SUMMARY | 2021-08-22 00:41 | EXTERNAL MEDICAL SUMMARY RPT | Continuity of Care Document ---
:1975 Author Organization [place] Address [address] [place] [address] Phone Care Team Providers Name Role Phone Altamirano Unavailable Unavailable Allergies No information. Encounters No information. Medications No information. Problems Procedures date description facility [id number] [facility] Results No information. Vital Signs date measurement value source [id number] weight_standard 126.99 lb [id number] weight_metric 57.6 kg [id number] temperature_standard 96 F [id number] temperature_metric 35.56 C 20210731 respiration_rate 18 /min [id number] height_standard 65 in [id number] height_metric 165.1 cm [id number] heart_rate 77 /min [id number] BP_systolic 127 mm[Hg] 20210731 BP_diastolic 73 mm[Hg] 20210731 BMI 21.1 kg/m2
[2021-08-22] MEDS ORDERED: ONDANSETRON 4 MG/2 ML VIAL IVP STA (01:54)
[2021-08-22] MEDS ORDERED: SODIUM CHLORIDE 0.9% 1,000 ML IV STA (01:54)
[2021-08-22 02:06] LABS: BASOPHILS # (AUTO) 0.1 10^3/uL (0.0-0.1); BASOPHILS % (AUTO) 0.8 %; EOSINOPHILS # (AUTO) 0.1 10^3/uL (0.0-0.7); EOSINOPHILS % (AUTO) 1.2 %; HCT - HEMATOCRIT 40.7 % (37.0-47.0); HGB - HEMOGLOBIN 13.5 g/dL (12.0-16.0); LYMPHOCYTES # (AUTO) 0.9 10^3/uL (1.5-3.5); LYMPHOCYTES % (AUTO) 9.1 %; MEAN CORPUSCULAR HEMOGLOBIN 30.3 pg (27.0-31.0); MEAN CORPUSCULAR HGB CONC 33.2 g/dL (32.0-36.0); MEAN CORPUSCULAR VOLUME 91.3 fL (81.0-99.0); MEAN PLATELET VOLUME 11.4 fL (7.9-10.8); MONOCYTES # (AUTO) 0.5 10^3/uL (0.0-1.0); MONOCYTES % (AUTO) 4.6 %; NEUTROPHILS # (AUTO) 8.5 10^3/uL (1.5-6.6); NEUTROPHILS % (AUTO) 84.1 %; PLT - PLATELET COUNT 189 10^3/uL (130-450); RED BLOOD COUNT 4.46 10^6/uL (4.20-5.40); RED CELL DISTRIBUTION WIDTH 12.9 % (12.0-15.0)
[2021-08-22 02:18] LABS: ALBUMIN 4.5 g/dL (3.2-5.5); ALBUMIN/GLOBULIN RATIO 1.6 (1.0-2.2); BILIRUBIN,TOTAL 0.7 mg/dL (0.2-1.0); CALCIUM 9.3 mg/dL (8.5-10.3); CREATININE 0.8 mg/dL (0.4-1.0); POTASSIUM 3.8 mmol/L (3.5-5.0); TOTAL PROTEIN 7.4 g/dL (6.7-8.2)
[2021-08-22] MEDS ORDERED: ONDANSETRON ODT 4 MG Prepack 2 TL PRN (02:59)
--- NOTE | 2021-08-22 02:59 | ED Physician Documentation ---
PD HPI NVD - Stated complaint Stated Complaint: DIZZY/LIGHT HEADED/VOMITING - Chief complaint Chief Complaint: Abd Pain - History obtained from History obtained from: Patient, Family - History of Present Illness Timing - onset: Today Timing - duration: Hours Timing - details: Abrupt onset, Still present Associated symptoms: Abdominal pain Contributing factors: Other (use of arnica orally) Improved by: Vomiting Similar symptoms before: Diagnosis (vomiting related to arnica use) Recently seen: Other (had lip injections done today) - Additonal information Additional information: 46-year-old Aleshia Pham had a injection into her lips today and following that she felt she had some bruising. She took some Arnica orally. She has developed some abdominal pain nausea and vomiting associated with this and she remembers having a similar reaction previously when she took it, only this seems much worse. 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: None : None HEENT: None Psych: None Musculoskeletal: None Derm: None - Past Surgical History Past Surgical History: No /HAND SCREEN PRINTER: Breast implants, Other - Present Medications Home Medications: Ambulatory Orders Medication Instructions Recorded Confirmed No Known Home Medications 08/22/21 08/22/21 - Allergies Allergies/Adverse Reactions: Allergies Allergy/AdvReac Type Severity Reaction Status Date / Time Iodinated Contrast Media AdvReac Edema Verified 08/22/21 00:44 - Social History Does the pt smoke?: No Smoking Status: Never smoker Does the pt drink ETOH?: Yes Does the pt have substance abuse?: No - Immunizations Immunizations are current?: Yes - POLST Patient has POLST: No PD ED PE NORMAL - Vitals Vital signs reviewed: Yes (tachy and hypertensive ) - General General: Alert and oriented X 3, No acute distress, Well developed/nourished - HEENT HEENT: PERRL, EOMI, Other (There is some bruising to the upper and lower lip noted on the left side only .) - Neck Neck: Supple, no meningeal sign, No bony TTP - Cardiac Cardiac: RRR, No murmur - Respiratory Respiratory: No respiratory distress, Clear bilaterally - Abdomen Abdomen: Normal bowel sounds, Soft, Non tender, Non distended, No organomegaly - Back Back: No CVA TTP, No spinal TTP - Derm Derm: Normal color, Warm and dry, No rash - Extremities Extremities: No deformity, No edema - Neuro Neuro: Alert and oriented X 3, pharmacology teacher 2-12 intact, No motor deficit, No sensory deficit, Normal speech Eye Opening: Spontaneous Motor: Obeys Commands Verbal: Oriented GCS Score: 15 - Psych Psych: Normal mood, Normal affect Results - Vitals Vitals: Vital Signs - 24 hr 08/22/21 08/22/21 08/22/21 00:40 00:52 02:10 Temperature 36.4 C L Heart Rate 102 H 80 80 Respiratory 18 14 18 Rate Blood Pressure 137/88 H O2 Saturation 95 98 08/22/21 03:16 Temperature 36.9 C Heart Rate 70 Respiratory 14 Rate Blood Pressure 108/69 O2 Saturation 98 Oxygen O2 Source Room air - Labs Labs: Laboratory Tests 08/22/21 08/22/21 01:55 01:55 WBC 10.0 RBC 4.46 Hgb 13.5 Hct 40.7 MCV 91.3 MCH 30.3 MCHC 33.2 RDW 12.9 Plt Count 189 MPV 11.4 H Neut # (Auto) 8.5 H Lymph # (Auto) 0.9 L Bennett # (Auto) 0.5 Eos # (Auto) 0.1 Baso # (Auto) 0.1 Absolute Nucleated RBC 0.00 Nucleated RBC % 0.0 Sodium 139 Potassium 3.8 Chloride 103 Carbon Dioxide 24 Anion Gap 12.0 BUN 16 Creatinine 0.8 Estimated GFR (MDRD) 78 L Glucose 106 H Calcium 9.3 Total Bilirubin 0.7 AST 21 ALT 17 Alkaline Phosphatase 47 Total Protein 7.4 Albumin 4.5 Globulin 2.9 Albumin/Globulin Ratio 1.6 Lipase 44 Procedures - IVC sono (time) 0140 Bedside IVC sono: IVC measures (cm) (1.02), Dehydration (est > 1L deficit) PD MEDICAL DECISION MAKING - ED course Complexity details: reviewed results, re-evaluated patient, considered differential, d/w patient, d/w family ED course: 46-year-old female with an ingestion of Arnica has had abdominal pain nausea and vomiting and she is found to be date dehydrated on interrogation the inferior vena cava. She is administered Zofran and intravenous saline with marked improvement. She is warned to not take this again. Departure - Departure Disposition: 01 Home, Self Care Clinical Impression: Dehydration, Medication side effect Vomiting Qualifiers: Vomiting type: unspecified Nausea presence: with nausea Qualified Code(s): R11.2 - Nausea with vomiting, unspecified Instructions: ED Dehydration, ED Nausea Vomiting Follow-Up: GABRIELLE العراقي [Provider Group] Comments: Roslyn it looks like the Arnica you have taken is an abdominal poison that causes abdominal pain nausea and vomiting when taking orally. The recommendation is to never take this medication orally. Discharge Date/Time: 08/22/21 03:16
[2021-08-22 03:17] VITALS: BP 108/69
== END 2021-08-22 03:16 | disposition home or self-care (01) ==
LOC: ED 00:27
DX: R10.9 Unspecified abdominal pain (principal); R11.2 Nausea with vomiting, unspecified; T50.995A Adverse effect of other drugs, medicaments and biological substances, initial encounter
CPT/HCPCS: 36415; 80053; 83690; 85025; 96361; 96374; 99282

== ENCOUNTER 2021-12-01 16:28 | Emergency (ER) | payer OTHER ==
[2021-12-01 16:39] VITALS: BP 135/85
[2021-12-01] MEDS ORDERED: KETOROLAC 60 MG/2 ML VIAL IM STA (16:53)
[2021-12-01] MEDS ORDERED: diazePAM 5 MG TABLET PO STA (16:53)
--- NOTE | 2021-12-01 17:39 | CT Report ---
PROCEDURE: CERVICAL SPINE WO INDICATIONS: neck pain s/p tubing accident x 3 weeks TECHNIQUE: Noncontrast 3 mm thick sections acquired from the skull base to the T4 level. Sagittal and coronal r eformats were then constructed. For radiation dose reduction, the following was used: automated exp osure control, adjustment of mA and/or kV according to patient size. COMPARISON: None. FINDINGS: Image quality: Excellent. Bones: No fractures or dislocations. Visualized superior ribs are intact. Soft tissues: Prevertebral soft tissues are normal in thickness. No paravertebral hematomas. No ap ical pneumothoraces. IMPRESSION: No fracture. Reviewed by: Blanche Peter MD on 12/01/2021 5:38 PM PDT Approved by: Blanche Peter MD on 12/01/2021 5:38 PM PDT Station ID: [id number]
--- NOTE | 2021-12-01 17:53 | ED Physician Documentation ---
History of Present Illness - Stated complaint Stated Complaint: NECK PX - Chief complaint Chief Complaint: Trauma Hd/Nk - History obtained from History obtained from: Patient - History of Present Illness Timing: How many weeks ago (3) Pain level max: 7 Pain level now: 7 - Additonal information Additional information: Patient is a 46-year-old female who presents to the emergency department 3 weeks of neck pain. Gradually worsening. Started after she was tubing behind a boat. Does not recall any specific injury. Worse with movement, nothing makes the pain better. The neck is now stiff and to the point that is difficult to move. No fevers. No numbness or tingling. 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: None : None HEENT: None Psych: None Musculoskeletal: None Derm: None - Past Surgical History Past Surgical History: No /WOOD BARKER: Breast implants, Other - Present Medications Home Medications: Ambulatory Orders Medication Instructions Recorded Confirmed Ketorolac [Toradol] 10 mg PO Q6H PRN #20 tablet 12/01/21 diazePAM [Valium] 5 mg PO TID PRN #15 tablet 12/01/21 - Allergies Allergies/Adverse Reactions: Allergies Allergy/AdvReac Type Severity Reaction Status Date / Time Iodinated Contrast Media AdvReac Edema Verified 12/01/21 16:39 - Social History Does the pt smoke?: No Smoking Status: Never smoker Does the pt drink ETOH?: Yes Does the pt have substance abuse?: No - Immunizations Immunizations are current?: Yes - POLST Patient has POLST: No PD ED PE NORMAL - Vitals Vital signs reviewed: Yes - General General: Alert and oriented X 3, No acute distress, Well developed/nourished - HEENT HEENT: Moist mucous membranes - Neck Neck: No bony TTP, Other (Bilateral paraspinal spasm. No midline tenderness to palpation. No step-off or deformity.) - Cardiac Cardiac: RRR, Strong equal pulses - Respiratory Respiratory: No respiratory distress, Clear bilaterally - Derm Derm: Warm and dry - Extremities Extremities: Normal ROM s pain - Neuro Neuro: Alert and oriented X 3, fish drier 2-12 intact, No motor deficit, No sensory deficit, Normal speech Eye Opening: Spontaneous Motor: Obeys Commands Verbal: Oriented GCS Score: 15 - Psych Psych: Normal mood, Normal affect Results - Vitals Vitals: Vital Signs - 24 hr 12/01/21 16:35 Temperature 36.7 C Heart Rate 66 Respiratory 16 Rate Blood Pressure 135/85 H O2 Saturation 100 Oxygen O2 Source Room air - Rads (name of study) Ct c-spine Radiology: Final report received, EMP read contemporaneously, See rad report PD MEDICAL DECISION MAKING - ED course Complexity details: reviewed results, re-evaluated patient, considered differential, d/w patient, d/w family ED course: 46-year-old female presents to the emergency department with what appears to be neck spasm. Given that this did follow the trauma of being on a tube being pulled behind a boat, a CT scan was performed. No acute findings here. Pain greatly improved with Valium and Toradol. Encourage gentle stretching at home. Neurovascularly intact. Patient and family counseled regarding signs and symptoms for which I believe and urgent re-evaluation would be necessary. Patient with good understanding of and agreement to plan and is comfortable going home at this time This document was made in part using voice recognition software. While efforts are made to proofread this document, sound alike and grammatical errors may occur. Departure - Departure Disposition: 01 Home, Self Care Clinical Impression: Neck muscle spasm Condition: Good Instructions: ED Spasm Neck No Injury Follow-Up: SOFIA TRUJILLO DO [Primary Care Provider] - Within 1 week Prescriptions: Ketorolac [Toradol] 10 mg PO Q6H PRN #20 tablet PRN Reason: neck pain diazePAM [Valium] 5 mg PO TID PRN #15 tablet PRN Reason: Spasms Comments: Your CT scan does not show any acute abnormalities. Please continue to gently range your neck at home to help improve the range of motion. Your prescriptions were sent to [facility] in [place]. Return if you worsen. Do not drive or operate heavy machinery while taking the Valium. Discharge Date/Time: 12/01/21 18:15
== END 2021-12-01 18:15 | disposition home or self-care (01) ==
LOC: ED 16:28
DX: M62.838 Other muscle spasm (principal)
CPT/HCPCS: 72125; 96372; 99282; 99284; A9270

== ENCOUNTER 2022-08-15 10:45 | Emergency (ER) | payer OTHER ==
[2022-08-15 11:11] LABS: BASOPHILS # (AUTO) 0.1 10^3/uL (0.0-0.1); BASOPHILS % (AUTO) 0.5 %; EOSINOPHILS # (AUTO) 0.1 10^3/uL (0.0-0.7); HCT - HEMATOCRIT 38.6 % (37.0-47.0); HGB - HEMOGLOBIN 12.8 g/dL (12.0-16.0); LYMPHOCYTES # (AUTO) 1.1 10^3/uL (1.5-3.5); LYMPHOCYTES % (AUTO) 10.4 %; MEAN CORPUSCULAR HEMOGLOBIN 30.2 pg (27.0-31.0); MEAN CORPUSCULAR HGB CONC 33.2 g/dL (32.0-36.0); MEAN PLATELET VOLUME 10.4 fL (7.9-10.8); MONOCYTES # (AUTO) 0.5 10^3/uL (0.0-1.0); MONOCYTES % (AUTO) 4.8 %; NEUTROPHILS # (AUTO) 8.4 10^3/uL (1.5-6.6); PLT - PLATELET COUNT 211 10^3/uL (130-450); RED BLOOD COUNT 4.24 10^6/uL (4.20-5.40); RED CELL DISTRIBUTION WIDTH 12.7 % (12.0-15.0); WHITE BLOOD COUNT 10.1 x10^3/uL (4.8-10.8)
[2022-08-15 11:24] LABS: ALBUMIN 4.2 g/dL (3.2-5.5); ALBUMIN/GLOBULIN RATIO 1.4 (1.0-2.2); BILIRUBIN,TOTAL 0.6 mg/dL (0.2-1.0); CALCIUM 8.4 mg/dL (8.5-10.3); CREATININE 0.7 mg/dL (0.4-1.0); POTASSIUM 3.6 mmol/L (3.5-5.0); TOTAL PROTEIN 7.2 g/dL (6.7-8.2)
[2022-08-15] MEDS ORDERED: ONDANSETRON ODT 4 MG TABLET TL STA (11:58)
[2022-08-15] MEDS ORDERED: SODIUM CHLORIDE 0.9% 2,000 ML IV STA (12:57)
[2022-08-15 13:24] LABS: BILIRUBIN,URINE NEGATIVE (NEGATIVE); GLUCOSE, URINE (UA) NEGATIVE (NEGATIVE); KETONES,URINE (UA) NEGATIVE (NEGATIVE); LEUKOCYTE ESTERASE, URINE NEGATIVE (NEGATIVE); NITRITE,URINE NEGATIVE (NEGATIVE); OCCULT BLOOD,URINE NEGATIVE (NEGATIVE); PROTEIN,URINE NEGATIVE (NEGATIVE); UROBILINOGEN,URINE 0.2 (NORMAL) E.U./dL (NORMAL)
[2022-08-15 13:26] LABS: CLARITY,URINE CLEAR (CLEAR)
--- NOTE | 2022-08-15 14:09 | ED Physician Documentation ---
History of Present Illness - Stated complaint Stated Complaint: NAUSEOUS/LIGHT HEADED - Chief complaint Chief Complaint: Abd Pain - History obtained from History obtained from: Patient, Family - History of Present Illness Timing: Today Pain level max: 0 Pain level now: 0 - Additonal information Additional information: 47-year-old female presents to the emergency department with nausea and vomiting this morning. This was followed by diarrhea. She feels lightheaded and weak. Still having some nausea but has not had any more vomiting. Did have chills but no fever. She was around someone with similar symptoms yesterday. No abdominal pain. No chest pain. No difficulty breathing. No blood in the stool. No blood in the emesis. Review of Systems Constitutional: denies: Fever, Chills Respiratory: denies: Cough GI: reports: Nausea, Vomiting, Diarrhea. denies: Hematemesis, Bloody / black stool Skin: denies: Rash Musculoskeletal: denies: Neck pain, Back pain Neurologic: denies: Headache PD PAST MEDICAL HISTORY - Past Medical History Cardiovascular: Other Respiratory: None Endocrine/Autoimmune: None GI: None BURNISHER AND BUMPER: None : None HEENT: None Psych: None Musculoskeletal: None Derm: None - Past Surgical History Past Surgical History: No /BURNISHER AND BUMPER: Breast implants, Other - Present Medications Home Medications: Ambulatory Orders Medication Instructions Recorded Confirmed Ketorolac [Toradol] 10 mg PO Q6H PRN #20 tablet 12/01/21 diazePAM [Valium] 5 mg PO TID PRN #15 tablet 12/01/21 - Allergies Allergies/Adverse Reactions: Allergies Allergy/AdvReac Type Severity Reaction Status Date / Time Iodinated Contrast Media AdvReac Edema Verified 08/15/22 10:53 - Social History Does the pt smoke?: No Smoking Status: Never smoker Does the pt drink ETOH?: Yes Does the pt have substance abuse?: No - Immunizations Immunizations are current?: Yes - POLST Patient has POLST: No PD ED PE NORMAL - Vitals Vital signs reviewed: Yes - General General: Alert and oriented X 3, No acute distress - HEENT HEENT: PERRL, Pharynx benign, Other (Dry lips and tongue) - Neck Neck: Supple, no meningeal sign - Cardiac Cardiac: RRR, Strong equal pulses - Respiratory Respiratory: No respiratory distress, Clear bilaterally - Abdomen Abdomen: Soft, Non tender, Non distended - Back Back: No CVA TTP, No spinal TTP - Derm Derm: Warm and dry, No rash - Extremities Extremities: No edema - Neuro Neuro: Alert and oriented X 3 - Psych Psych: Normal mood, Normal affect Results - Vitals Vitals: Vital Signs - 24 hr 08/15/22 08/15/22 10:51 14:40 Temperature 36.5 C Heart Rate 91 77 Respiratory 18 18 Rate Blood Pressure 137/91 H 107/68 O2 Saturation 100 100 Oxygen O2 Source Room air - Labs Labs: Laboratory Tests 08/15/22 08/15/22 08/15/22 11:00 11:07 11:07 WBC 10.1 RBC 4.24 Hgb 12.8 Hct 38.6 MCV 91.0 MCH 30.2 MCHC 33.2 RDW 12.7 Plt Count 211 MPV 10.4 Neut # (Auto) 8.4 H Lymph # (Auto) 1.1 L [place] # (Auto) 0.5 Eos # (Auto) 0.1 Baso # (Auto) 0.1 Absolute Nucleated RBC 0.00 Nucleated RBC % 0.0 Sodium 136 Potassium 3.6 Chloride 98 L Carbon Dioxide 24 Anion Gap 14.0 H BUN 18 Creatinine 0.7 Estimated GFR (MDRD) 90 Glucose 117 H Calcium 8.4 L Total Bilirubin 0.6 AST 25 ALT 26 Alkaline Phosphatase 52 Total Protein 7.2 Albumin 4.2 Globulin 3.0 Albumin/Globulin Ratio 1.4 Lipase 43 Urine Color YELLOW Urine Clarity CLEAR Urine pH 7.0 Ur Specific [place] 1.020 Urine Protein NEGATIVE Urine Glucose (UA) NEGATIVE Urine Ketones NEGATIVE Urine Occult Blood NEGATIVE Urine Nitrite NEGATIVE Urine Bilirubin NEGATIVE Urine Urobilinogen 0.2 (NORMAL) Ur Leukocyte Esterase NEGATIVE Ur Microscopic Review NOT INDICATED Urine Culture Comments NOT INDICATED PD Medical Decision Making - ED course Complexity details: reviewed results, re-evaluated patient, considered differential, d/w patient, d/w family ED course: 47-year-old female with what appears to be a viral gastroenteritis. No acute findings on CBC. Chemistry does show an elevated anion gap. Urinalysis is negative. Patient feels much better after IV Zofran and 2 L of IV fluid. Lightheadedness and dizziness resolved. Nausea resolved. We will continue supportive care and have her follow-up with her doctor for further care as needed. Suspect that this is a self-limited illness. Abdomen is soft, nontender nondistended on serial exam. Patient counseled regarding signs and symptoms for which I believe and urgent re-evaluation would be necessary. Patient with good understanding of and agreement to plan and is comfortable going home at this time This document was made in part using voice recognition software. While efforts are made to proofread this document, sound alike and grammatical errors may occur. Departure - Departure Disposition: 01 Home, Self Care Clinical Impression: Viral gastroenteritis, Dehydration Condition: Good Instructions: ED Gastroenteritis Viral Follow-Up: SOFIA TRUJILLO, DO [Primary Care Provider] - As Needed Comments: Go home and rest, drink plenty of fluids. Please return if you worsen. The diarrhea should improve over the next 1 to 3 days. Discharge Date/Time: 08/15/22 14:42
[2022-08-15 14:40] VITALS: BP 107/68
== END 2022-08-15 14:42 | disposition home or self-care (01) ==
LOC: ED 10:45
DX: A08.4 Viral intestinal infection, unspecified (principal); E86.0 Dehydration
CPT/HCPCS: 36415; 80053; 81001; 81003; 83690; 85025; 87086; 99283; 99284

== ENCOUNTER 2023-11-20 12:16 | Emergency (ER) | payer OTHER ==
[2023-11-20] MEDS: SODIUM CHLORIDE 0.9% 1,000 ML IV STA ×2 (12:45→13:55)
--- NOTE | 2023-11-20 12:50 | ED Physician Documentation ---
History of Present Illness - Stated complaint Stated Complaint: RAPID HR, FEELING VERY "OFF" - Chief complaint Chief Complaint: General - History obtained from History obtained from: Patient - History of Present Illness Timing: Today Pain level max: 0 Pain level now: 0 - Additonal information Additional information: Patient is a 48-year-old female who presents to the emergency department complaining of feeling "off". She states that she felt her heart beating rapidly today and has persisted for about the past hour. She had hot and cold sensations throughout her legs earlier this week. Has a history of POTS. She states she had mild chest pain earlier, none now. No difficulty breathing. Nothing makes it better or worse. Review of Systems Constitutional: denies: Fever, Chills Nose: denies: Rhinorrhea / runny nose, Congestion GI: denies: Vomiting : denies: Dysuria, Frequency, Hesitancy, Now EGA Skin: denies: Rash PD PAST MEDICAL HISTORY - Past Medical History Past Medical History: Yes Cardiovascular: Other Respiratory: None Endocrine/Autoimmune: None GI: None CUSTOMS AND IMMIGRATION OFFICER: None : None HEENT: None Psych: None Musculoskeletal: None Derm: None - Past Surgical History Past Surgical History: Yes /CUSTOMS AND IMMIGRATION OFFICER: Breast implants, Other - Present Medications Home Medications: Ambulatory Orders Medication Instructions Recorded Confirmed No Known Home Medications 11/20/23 11/20/23 - Allergies Allergies/Adverse Reactions: Allergies Allergy/AdvReac Type Severity Reaction Status Date / Time gadobutrol [From Gadavist] Allergy Anaphylaxis Verified 11/20/23 14:22 - Social History Does the pt smoke?: No Smoking Status: Never smoker Does the pt drink ETOH?: Yes Does the pt have substance abuse?: No - Immunizations Immunizations are current?: Yes - POLST Patient has POLST: No PD ED PE NORMAL - Vitals Vital signs reviewed: Yes - General General: Alert and oriented X 3, No acute distress - HEENT HEENT: PERRL, Moist mucous membranes - Neck Neck: Supple, no meningeal sign - Cardiac Cardiac: RRR, No murmur, Strong equal pulses - Respiratory Respiratory: No respiratory distress, Clear bilaterally - Abdomen Abdomen: Soft, Non tender, Non distended - Back Back: No CVA TTP, No spinal TTP - Derm Derm: Warm and dry - Extremities Extremities: No edema, Other (There is some tenderness along the tibialis anterior of the bilateral lower extremities, no calf tenderness or cord.) - Neuro Neuro: Alert and oriented X 3 - Psych Psych: Normal mood, Normal affect Results - Vitals Vitals: Vital Signs - 24 hr 11/20/23 11/20/23 11/20/23 12:20 12:49 15:21 Temperature 36.8 C Heart Rate 100 76 96 Respiratory 18 22 20 Rate Blood Pressure 150/100 H 146/86 H 125/81 H O2 Saturation 100 99 99 11/20/23 16:42 Temperature Heart Rate 84 Respiratory 14 Rate Blood Pressure 115/64 O2 Saturation 99 Oxygen O2 Source Room air - EKG (time done) 1227 EKG releavant findings:: EKG personally interpreted by author of this note. Relevant findings are: Rate: Rate (enter#) (109) Rhythm: Sinus tachycardia (109) [place]: Normal Intervals: Normal MI QRS: Normal Ischemia: ST depression (Borderline) - Labs Labs: Laboratory Tests 11/20/23 11/20/23 11/20/23 12:42 12:42 12:42 WBC 6.6 RBC 4.71 Hgb 13.8 Hct 42.9 MCV 91.1 MCH 29.3 MCHC 32.2 RDW 12.9 Plt Count 192 MPV 11.2 H Neut # (Auto) 4.0 Lymph # (Auto) 1.7 [place] # (Auto) 0.6 Eos # (Auto) 0.2 Baso # (Auto) 0.1 Absolute Nucleated RBC 0.00 Nucleated RBC % 0.0 D-Dimer 232.3 Sodium 136 Potassium 3.5 Chloride 103 Carbon Dioxide 23 Anion Gap 10.0 BUN 15 Creatinine 0.9 Estimated GFR (MDRD) 67 L Glucose 118 H Calcium 9.8 Phosphorus Magnesium Total Bilirubin 0.5 AST 14 ALT 10 Alkaline Phosphatase 47 Troponin I High Sens < 2.3 L Total Protein 7.8 Albumin 4.6 Globulin 3.2 Albumin/Globulin Ratio 1.4 Lipase 34 Nasal Adenovirus (PCR) Nasal B. parapertussis DNA (PCR) Nasal Coronavir 229E PCR Nasal Coronavir HKU1 PCR Nasal Coronavir NL63 PCR Nasal Coronavir OC43 PCR Nasal Enterovir/Rhinovir PCR Nasal Influenza B PCR Nasal Influenza A PCR Nasal Parainfluen 1 PCR Nasal Parainfluen 2 PCR Nasal Parainfluen 3 PCR Nasal Parainfluen 4 PCR Nasal RSV (PCR) Nasal B.pertussis DNA PCR Nasal C.pneumoniae (PCR) Deny Human Metapneumo PCR Nasal M.pneumoniae (PCR) Nasal SARS-CoV-2 (PCR) 11/20/23 11/20/23 12:42 15:15 WBC RBC Hgb Hct MCV MCH MCHC RDW Plt Count MPV Neut # (Auto) Lymph # (Auto) [place] # (Auto) Eos # (Auto) Baso # (Auto) Absolute Nucleated RBC Nucleated RBC % D-Dimer Sodium Potassium Chloride Carbon Dioxide Anion Gap BUN Creatinine Estimated GFR (MDRD) Glucose Calcium Phosphorus 3.2 Magnesium 1.5 L Total Bilirubin AST ALT Alkaline Phosphatase Troponin I High Sens Total Protein Albumin Globulin Albumin/Globulin Ratio Lipase Nasal Adenovirus (PCR) NOT DETECTED Nasal B. parapertussis DNA (PCR) NOT DETECTED Nasal Coronavir 229E PCR NOT DETECTED Nasal Coronavir HKU1 PCR NOT DETECTED Nasal Coronavir NL63 PCR NOT DETECTED Nasal Coronavir OC43 PCR NOT DETECTED Nasal Enterovir/Rhinovir PCR NOT DETECTED Nasal Influenza B PCR NOT DETECTED Nasal Influenza A PCR NOT DETECTED Nasal Parainfluen 1 PCR NOT DETECTED Nasal Parainfluen 2 PCR NOT DETECTED Nasal Parainfluen 3 PCR NOT DETECTED Nasal Parainfluen 4 PCR NOT DETECTED Nasal RSV (PCR) NOT DETECTED Nasal B.pertussis DNA PCR NOT DETECTED Nasal C.pneumoniae (PCR) NOT DETECTED Deny Human Metapneumo PCR NOT DETECTED Nasal M.pneumoniae (PCR) NOT DETECTED Nasal SARS-CoV-2 (PCR) NOT DETECTED - Rads (name of study) Chest x-ray Relevant Findings:: Final report received, See rad report CT pulmonary angiogram Relevant Findings:: Final report received, See rad report PD Medical Decision Making - ED course Complexity details: reviewed results, re-evaluated patient, considered differential, d/w patient ED course: Patient is a 48-year-old female with tachycardia, unclear etiology, generally not feeling well. Respiratory PCR is negative. Chest x-ray does not show any acute abnormalities. Given IV fluids. She was found to be hypomagnesemic and this was replaced as well. Her D-dimer is mildly elevated, given her tachycardia, a CT pulmonary angiogram was performed, this does not show any evidence of PE. Heart rate decreased in the emergency department. No hypoxia. No chest pain. Unclear etiology of her symptoms, could be related to the magnesium. Will have her start magnesium supplementation at home and follow-up with her PCP for further care. Patient counseled regarding signs and symptoms for which I believe and urgent re-evaluation would be necessary. Patient with good understanding of and agreement to plan and is comfortable going home at this time This document was made in part using voice recognition software. While efforts are made to proofread this document, sound alike and grammatical errors may occur. Departure - Departure Disposition: Home, Self Care Clinical Impression: Hypomagnesemia, Tachycardia Condition: Good Instructions: Hypomagnesemia Dc Follow-Up: SOFIA TRUJILLO DO [Primary Care Provider] - Comments: Your magnesium level was low today. There is no evidence of heart attack, blood clots in the lungs or other serious illness at this time. You were given IV fluids. You can start on a magnesium supplement such as magnesium bisglycinate, you can follow the directions on the label for this, this formulation tends to be gentler with fewer side effects. Your CT scan also did not show any acute abnormalities. You do have a respiratory swab pending, I will contact you later today with the results of this. Forms: PCP List Discharge Date/Time: 11/20/23 16:47
[2023-11-20 12:55] VITALS: O2SAT 99
[2023-11-20 12:57] LABS: BASOPHILS # (AUTO) 0.1 10^3/uL (0.0-0.1); BASOPHILS % (AUTO) 0.9 %; EOSINOPHILS # (AUTO) 0.2 10^3/uL (0.0-0.7); HCT - HEMATOCRIT 42.9 % (37.0-47.0); HGB - HEMOGLOBIN 13.8 g/dL (12.0-16.0); LYMPHOCYTES # (AUTO) 1.7 10^3/uL (1.5-3.5); LYMPHOCYTES % (AUTO) 26.4 %; MEAN CORPUSCULAR HEMOGLOBIN 29.3 pg (27.0-31.0); MEAN CORPUSCULAR HGB CONC 32.2 g/dL (32.0-36.0); MEAN CORPUSCULAR VOLUME 91.1 fL (81.0-99.0); MEAN PLATELET VOLUME 11.2 fL (7.9-10.8); MONOCYTES # (AUTO) 0.6 10^3/uL (0.0-1.0); MONOCYTES % (AUTO) 9.3 %; NEUTROPHILS % (AUTO) 60.2 %; PLT - PLATELET COUNT 192 10^3/uL (130-450); RED BLOOD COUNT 4.71 10^6/uL (4.20-5.40); RED CELL DISTRIBUTION WIDTH 12.9 % (12.0-15.0); WHITE BLOOD COUNT 6.6 x10^3/uL (4.8-10.8)
[2023-11-20 13:15] LABS: TROPONIN I HIGH SENSITIVITY < 2.3 ng/L (2.3-14.8)
--- NOTE | 2023-11-20 13:28 | XRAY Report ---
PROCEDURE: Chest 1V INDICATIONS: palpitations TECHNIQUE: One view of the chest was acquired. COMPARISON: None. FINDINGS: Surgical changes and devices: None. Lungs and pleura: No pleural effusions or pneumothorax. Lungs are clear. Mediastinum: Mediastinal contours appear normal. Heart size is normal. Bones and chest wall: No suspicious bony lesions. Overlying soft tissues appear unremarkable. IMPRESSION: No acute cardiopulmonary process. Reviewed by: Jon Kennedy MD on 11/20/2023 1:26 PM PDT Approved by: Jon Kennedy MD on 11/20/2023 1:26 PM PDT Station ID: [id number]
[2023-11-20 13:32] LABS: ALBUMIN 4.6 g/dL (3.2-5.5); ALBUMIN/GLOBULIN RATIO 1.4 (1.0-2.2); ALKALINE PHOSPHATASE 47 IU/L (42-121); ALT ALANINE AMINOTRANSFERASE 10 IU/L (10-60); AST ASPARTATE AMINOTRANSFERASE 14 IU/L (10-42); BILIRUBIN,TOTAL 0.5 mg/dL (0.2-1.0); BUN - BLOOD UREA NITROGEN 15 mg/dL (6-20); CALCIUM 9.8 mg/dL (8.5-10.3); CARBON DIOXIDE - CO2 23 mmol/L (21-32); CHLORIDE 103 mmol/L (101-111); CREATININE 0.9 mg/dL (0.6-1.3); GFR - MDRD 67 (>89); GLUCOSE 118 mg/dL (74-104); LIPASE 34 U/L (11-82); POTASSIUM 3.5 mmol/L (3.5-4.5); SODIUM 136 mmol/L (135-145); TOTAL PROTEIN 7.8 g/dL (6.4-8.9)
[2023-11-20] MEDS ORDERED: iohexoL-300 100 ML VIAL ONE (14:01)
[2023-11-20 14:41] LABS: MAGNESIUM 1.5 mg/dL (1.7-2.3); PHOSPHORUS 3.2 mg/dL (2.5-5.0)
--- NOTE | 2023-11-20 14:55 | CT Report ---
PROCEDURE: Angio Chest INDICATIONS: tachycardia, elevated d-dimer CONTRAST: 80ml omni 300 TECHNIQUE: After the administration of intravenous contrast, 2 mm axial images were acquired from the pulmonary apices to the posterior costophrenic angles during the arterial phase. In addition, 1 mm lung kernel and 5 mm soft tissue kernel reconstructions were performed. 3-dimensional coronal oblique maximum int ensity projection (MIP) reformats, 8 mm axial MIP, and 5 mm coronal and sagittal MPR reformats were t hen performed through the thorax. For radiation dose reduction, the following was used: automated exp osure control, adjustment of mA and/or kV according to patient size. COMPARISON: None. FINDINGS: Image quality: Excellent. Large vessels: No filling defects within the opacified pulmonary arteries, accounting for motion and contrast timing. No evidence of acute aortic syndrome or aortic aneurysm. Lungs and pleura: No consolidation. No pleural effusions. No pneumothorax. No suspicious pulmonary n odules which require follow up. Mediastinum: Heart size is normal. No pericardial effusion. No large vessel abnormality. No mediastin al adenopathy by size criteria. Chest wall and lower neck: Thyroid is unremarkable. No axillary or supraclavicular adenopathy by size . Bones: No aggressive osseous abnormality. Upper Abdomen: Unremarkable. IMPRESSION: No pulmonary embolus. No acute cardiopulmonary process. Reviewed by: Jon Kennedy MD on 11/20/2023 2:54 PM PDT Approved by: Jon Kennedy MD on 11/20/2023 2:54 PM PDT Station ID: [id number]
[2023-11-20] MEDS: KETOROLAC 30 MG/ML VIAL IVP STA (15:43)
[2023-11-20] MEDS: MAGNESIUM SULFATE 2 GRAM 2 GM/50 ML BAG IV ONE (15:44)
[2023-11-20 16:14] LABS: CORONAVIRUS 229E-RESP PCR NOT DETECTED; CORONAVIRUS HKU1-RESP PCR NOT DETECTED; CORONAVIRUS NL63-RESP PCR NOT DETECTED; CORONAVIRUS OC43-RESP PCR NOT DETECTED; HUMAN METAPNEUMOVIRUS NOT DETECTED; RHINOVIRUS/ENTEROVIRUS NOT DETECTED; SARS-CoV-2 -RESP PCR PANEL NOT DETECTED
[2023-11-20 16:15] LABS: B. PARAPERTUSSIS- RESP PCR PAN NOT DETECTED; B. PERTUSSIS- RESP PCR PANEL NOT DETECTED; C. PNEUMONIAE- RESP PCR PANEL NOT DETECTED; INFLUENZA A- RESP PCR PANEL NOT DETECTED; INFLUENZA B - RESP PCR PANEL NOT DETECTED; M. PNEUMONIAE- RESP PCR PANEL NOT DETECTED; PARAINFLUENZA VIRUS 1 NOT DETECTED; PARAINFLUENZA VIRUS 2 NOT DETECTED; PARAINFLUENZA VIRUS 3 NOT DETECTED; PARAINFLUENZA VIRUS 4 NOT DETECTED; RSV- RESP PCR PANEL NOT DETECTED
[2023-11-20 16:44] VITALS: BP 115/64
[2023-11-20] MEDS: iohexoL-300 100 ML VIAL IVP ONE (18:32)
== END 2023-11-20 16:47 | disposition home or self-care (01) ==
LOC: ED 12:16
DX: R00.0 Tachycardia, unspecified (principal); E83.42 Hypomagnesemia
CPT/HCPCS: 36415; 71045; 71275; 80053; 83690; 83735; 84100; 84484; 85025; 85379; 87633; 93005; 96361; 96365; 96375; 99284; Q9967